=== PATIENT | female | born 1960 | race Caucasian/White ===

== ENCOUNTER → 2016-04-19 | Outpatient (REF) | payer OTHER ==
[~2016-04-19] MED LIST: ADVI200C5 PO; AMLO10TA2 PO; DULO1CAP3 PO; FURO20TA2 PO; LISI20TA3 PO; LOSA100T36 PO; MELO7.5T3 PO; METO100T PO; OMEP40CA2 PO; PERCOCET PO; SENO8.6T9 PO
[2016-04-22 14:12] LABS: 5HIAA 24HR URINE 2.9 mg/24 hr (0.0-14.9); 5HIAA TOTAL URINE 2.4 mg/L (Undefined)
== END ==
LOC: M LAB REF 15:45
PROVIDERS: ATTEND Internal Medicine
DX: I10 Essential (primary) hypertension (principal)

== ENCOUNTER → 2016-06-16 | Outpatient (REF) | payer OTHER | LOC: M LAB REF 11:53 | PROVIDERS: ATTEND Physician Assistant | DX: R30.0 Dysuria (principal) ==

== ENCOUNTER 2016-07-18 13:09 | Inpatient (IN) | payer OTHER ==
[~2016-07-18] VITALS: Ht 160 cm; Wt 93.2 kg
[~2016-07-18 13:09] MED LIST changes: -ATOR1TAB19 PO; -BUPR1TAB17 PO; -CHLO125TA PO; -CLOT1CRE71 TOP; -COLA100C3 PO; -LINZ145C PO; -METO-209 PO; -MIRA3350 PO; -MORP-38 PO; -NEXI40CA PO; -PROP40TA PO; -TOPI25CA PO; -TOPI50TA4 PO; -VALS1TAB48 PO
[2016-07-18] MEDS ORDERED: ATOR1TAB19 PO (13:26)
[2016-07-18] MEDS ORDERED: TOPI25CA PO (13:26)
[2016-07-18] MEDS ORDERED: NEXI40CA PO (13:26)
[2016-07-18] MEDS ORDERED: LINZ145C PO (13:26)
[2016-07-18] MEDS ORDERED: PROP40TA PO (13:26)
[2016-07-18] MEDS ORDERED: MIRA3350 PO (13:26)
[2016-07-18] MEDS ORDERED: BUPR1TAB17 PO (13:26)
[2016-07-18] MEDS ORDERED: CHLO125TA PO (13:26)
[2016-07-18] MEDS ORDERED: TOPI50TA4 PO (13:26)
[2016-07-18] MEDS ORDERED: VALS1TAB48 PO (13:26)
[2016-07-18] MEDS ORDERED: COLA100C3 PO (13:26)
[2016-07-18 14:04] LABS: BASO % 0.7 % (0.0-1.0); EOS # 0.2 K/mm3 (0.0-0.50); EOS % 2.9 % (0.0-3.0); LARGE UNSTAINED CELL # 0.2 K/mm3 (0.0-0.4); LARGE UNSTAINED CELL % 2.2 % (0.0-4.0); LYMPH # 2.8 K/mm3 (1.5-4.5); LYMPH % 40.9 % (24.0-44.0); MEAN CORPUSCULAR HEMOGLOBIN 32.7 pg (27.0-33.0); MEAN CORPUSCULAR VOLUME 88.8 fl (80.0-96.0); MONO # 0.3 K/mm3 (0.0-0.8); MONO % 4.7 % (0.0-5.0); NEUTROPHILS # 3.3 K/mm3 (1.8-7.7); NEUTROPHILS % 48.5 % (36.0-66.0); PLATELET COUNT, AUTOMATED 352 k/mm3 (150-450); WHITE BLOOD COUNT 6.8 K/mm3 (4.0-10.0)
[2016-07-18 14:06] LABS: MEAN CORPUSCULAR HGB CONC 36.5 g/dl (32.0-36.5)
[2016-07-18 14:15] LABS: ALBUMIN 3.8 GM/DL (3.2-5.2); ALBUMIN/GLOBULIN RATIO 0.95 (1.00-1.93); BILIRUBIN,DIRECT 0.1 MG/DL (0.0-0.2); BILIRUBIN,TOTAL 0.7 MG/DL (0.2-1.0); CALCIUM LEVEL 9.5 MG/DL (8.5-10.1); CREATININE FOR GFR 2.34 MG/DL (0.55-1.02); GLOMERULAR FILTRATION RATE 22.9 (>51); POTASSIUM SERUM 2.9 MEQ/L (3.5-5.1); TOTAL PROTEIN 7.8 GM/DL (6.4-8.2)
[2016-07-18] MEDS ORDERED: NS 1,000 ML IV ONE (14:30)
[2016-07-18] MEDS ORDERED: POTASSIUM CHLORIDE 10 MEQ SR TABLET PO ONE ×2 (14:30→19:00)
[2016-07-18] MEDS ORDERED: ONDANSETRON 4 MG ORAL DISINTEGRATING TAB (S0181) PO ONE (14:30)
[2016-07-18 15:15] LABS: URIC ACID 9.4 MG/DL (2.6-6.0)
[2016-07-18] MEDS ORDERED: MORPHINE 2 MG/ML 1ML SYRINGE IV ONE (15:15)
--- NOTE | 2016-07-18 16:26 | REP ---
RIGHT UPPER QUADRANT ULTRASOUND: Real-time sonographic evaluation of the right upper quadrant is performed. Multiple gallstones are seen in a distended gallbladder. There is no gallbladder wall thickening. There is no free fluid. There is no biliary dilatation. Common bile duct measuring 5 mm. A cyst in the left lobe of the liver measures 2.4 x 1.3 x 1.6 cm. A cyst in the right lobe of the liver measures 1.1 x 0.7 x 1.2 cm. Pancreas could not be seen due to overlying bowel gas. Right kidney demonstrates no hydronephrosis with a size of 11.7 cm. There is a cyst in the upper pole of the right kidney, 1.9 x 1.9 x 2.5 cm. IMPRESSION: Multiple gallstones in a distended gallbladder without evidence of gallbladder wall thickening, pericholecystic fluid or biliary dilatation. Signed by Hilario Hartman MD 07/18/2016 05:27 P
[2016-07-18] MEDS ORDERED: CLOT1CRE71 TOP (17:23)
[2016-07-18] MEDS ORDERED: MORP-38 PO (17:23)
[2016-07-18] MEDS ORDERED: METO-209 PO (17:23)
--- NOTE | 2016-07-18 18:09 | ECGEPIP ---
Stationary ECG Study [facility] - ED Test Date: 2016-07-18 Pat Name: ELLIE HOLLINS Department: Room: - Gender: F [employer]: ct : 1960 Requested By: LISA Raza Order Number: [id number] Reading MD: Arias Marcial Measurements Intervals [place] Rate: 100 P: 41 [place]: 147 QRS: -44 QRSD: 94 T: 2 QT: 348 QTc: 450 Interpretive Statements SINUS TACHYCARDIA LEFT AXIS DEVIATION LOW QRS VOLTAGE IN PRECORDIAL LEADS NON-SPECIFIC T WAVE ABNORMALITIES SIMILAR TO 05/25/11 Electronically Signed On 07-18-2016 18:09:07 EDT by Arias Marcial
[2016-07-18] MEDS ORDERED: MIRALAX *UNIT DOSE* 17GM PACKET PO PRN (18:30)
[2016-07-18 19:02] LABS: MAGNESIUM LEVEL 1.8 MG/DL (1.8-2.4)
[2016-07-18] MEDS: NS 1,000 ML IV SCH (19:09)
[2016-07-18] MEDS: ACETAMINOPHEN TAB 650MG DOSE (2X325MG) PO PRN (19:17)
[2016-07-18 20:00] VITALS: BP 128/74
--- NOTE | 2016-07-18 20:14 | HPE ---
DATE OF ADMISSION: 07/18/2016 PRIMARY CARE PROVIDER: Dr. Denney. CHIEF COMPLAINT: Abdominal pain. HISTORY OF PRESENT ILLNESS: Ms. Lockhart is a 56-year-old female with past medical history of hypertension, obesity, Stewart's esophagus who presented to the emergency department (ED) today with complaint of abdominal pain. The pain is located in her bilateral upper quadrant. Described as twisting sensation. Waxes and wanes. Symptoms started approximately 5 days ago. Unable to recall what she was doing when it first started. It is worse whenever she eats or drinks. Improves if she is nothing by mouth. Has not taken anything for her symptoms. Associated with nausea, constipation, 9 pound weight loss in the last two weeks, decreased appetite. No emesis, diarrhea, fevers, chills. Because of her abdominal pain and nausea she has not eaten a real meal in the last 4-5 days. Only drank half a bottle of kita sharad today. She actually saw her primary care provider today for her symptom. At that time she was found to be hypotensive with systolic low in the 90s with heart rate 120. She had blood work done which later showed creatinine of 2.3 and BUN 28, potassium 2.9, which is not her normal. She was then advised to stop her chlorthalidone, valsartan and advised to come into the hospital for further evaluation. Because she has not been able to eat and drink she has been feeling dizzy, lightheaded and actually had an episode of passing out approximately two days ago while at [employer]. It is unclear how long she was out for and details of this are unclear as she was by herself. She did call her daughter after waking up to bring her back to her house. Since then, has had no further episodes of syncopal events. In the emergency department (ED) was given 40 mEq of potassium times one, and one liter of normal saline. PAST MEDICAL HISTORY: Hypertension. Stewart's' esophagus. Escherichia coli (E.coli) urinary tract infection. Hyperlipidemia. Low back pain. Anxiety. Gastroesophageal reflux disease. Depression. PAST SURGICAL HISTORY: Positive for hysterectomy. Oophorectomy. Colonoscopy in 2012. EGD 2016, most recent one showed Stewart esophagus. Placement of spinal stimulator. Lumbar repair. Hammer toe repair. ALLERGIES: No known drug allergies. HOME MEDICATIONS: - Lipitor 10 mg by mouth daily - clotrimazole topical twice a day as needed for feet and stomach - Wellbutrin 150 mg by mouth daily - chlorthalidone 12.5 mg by mouth for fluid retention - Colace 100 mg by mouth twice a day as needed - Duloxetine 60 mg by mouth twice a day - Nexium 40 mg by mouth daily - Linzess 140 mcg by mouth daily - metoprolol succinate 100 mg by mouth daily (Please note that metoprolol succinate was recently discontinued in Dr. Denney office due to her hypotension today.) - Morphine sulfate 50 mg by mouth twice a day as needed - MiraLax 17 gram by mouth as needed - Propranolol 40 mg by mouth twice a day - Topamax 25 mg by mouth daily - <<6:14>> mg at bedtime - valsartan 325 mg by mouth daily FAMILY HISTORY: Parents without known medical problems. SOCIAL HISTORY: Patient is a never smoker. Used to drink alcohol on social occasions, a glass of wine but last drink was 2 months ago. 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 Lives in [place]. REVIEW OF SYSTEMS: CONSTITUTIONAL: Positive for 9 pounds weight loss in the last two weeks as mentioned. No fevers, chills, night sweats, rigors. HEENT: No difficulty with speech and swallow. No epistaxis. Eyes: No blurry vision, double vision. CARDIOVASCULAR: Denies chest pain, paroxysmal nocturnal dyspnea, pillow orthopnea, lower extremity edema. PULMONARY: Denies shortness of breath, productive cough, hemoptysis. GASTROINTESTINAL: Denies hematochezia, melena, or hematemesis, nausea, vomiting, diarrhea, constipation. GENITOURINARY: As above. : Positive for decreased urination in the last few days but no hematuria. MUSCULOSKELETAL: Positive for chronic back pain has a spinal stimulator. NEUROLOGICAL: Reports tingling and burning to her feet and her hands, but no paralysis, paresthesia. Positive for syncopal episode a few days ago. ENDOCRINE: Negative for diabetes, or thyroid disease. LYMPHATICS: No lumps, bumps, or swelling anywhere in neck, axilla, or groin. HEMATOLOGY: No abnormal bleeding or bruising. PSYCHIATRIC: Positive for history of depression, anxiety. SKIN: No new rashes. PHYSICAL EXAMINATION: VITAL SIGNS: Blood pressure 130/84, heart rate 96. Temperature 97.1, respiration rate 18, pulse ox 97% on room air. GENERAL: Patient is lying in bed, flat angle, comfortable, no acute distress. She is alert, awake and oriented times three. Pleasant, cooperative. Family at bed side. Appears stated age, obese appearing. HEENT: Normocephalic, atraumatic. Moist oral mucosa. Fair dentition. No thrush or lesions appreciated. Nasal septum midline. Eyes: Extraocular movement intact. Pupils equal, round, reactive to light. NECK: Supple. TRACHEA: Midline. Large neck. Could not appreciate JVD secondary to large neck size. CHEST: Symmetric chest rise. No accessory muscle use. Breath sounds were diminished but clear bilaterally. HEART: Mildly tachycardic. Did not appreciate murmurs, rubs or gallops. ABDOMEN: Soft, but tender to palpation bilateral upper quadrant. No rebound, no guarding, no peritoneal sign. Bowel sounds are normal and active. EXTREMITIES: No pedal edema, pedal pulses present bilaterally. NEUROLOGIC: Sensory intact. Strength 5/5 in all extremities. Did not assess gait. PSYCHIATRIC: Normal affect. LABORATORY DATA: WBC 6.8, hemoglobin 14.9, hematocrit 40.4, platelet 252, sodium 136, potassium 2.9, chloride 96, carbon dioxide 28, BUN 30, creatinine 2.34. The most recent labs in our record was back in 2012. At that time was normal. Fasting glucose 139, uric acid 9.4, lactic acid is 2. Liver profile normal. Total protein 7.8, albumin 3.8, lipase 247. Gallbladder ultrasound showed multiple gallstones in a distended gallbladder without evidence of gallbladder wall thickening. Pericholecystic fluid of biliary dilatation. Right kidney without hydronephrosis. Cyst in the left upper pole of the right kidney. Cyst in the left lobe of the liver measures 2.4 x 1.3 x 1.6 cm. Right lobe of the liver measures 1.1 x 0.7 x 1.2 cm. Electrocardiogram showed ventricular rate of 100 sinus tach, left axis deviation , S-wave, poor R-wave progression. No ST-T wave abnormality. IMPRESSION AND PLAN: Ms. Lockhart is a 56-year-old female with past medical history of hypertension, Stewart esophagus who presented with abdominal pain found to have acute renal failure and hypokalemia. 1. Abdominal pain. Ultrasound showed distended gallbladder without evidence of wall thickening, fluid or dilatation of biliary system. It is unclear whether this is the cause of her pain. Have ordered CT abdomen and pelvis to further evaluate. In the meantime, the patient will be made nothing by mouth due to her persistent nausea. Her diet can be advanced at a later time if she is able to tolerate. Her lipase was checked and was normal. Due to her age, obesity, history of hypertension and hyperlipidemia we have also added cardiac marker to evaluate for possible underlying cardiac cause. 2. Acute renal failure. This is likely secondary to dehydration and medication use. Despite her not being able to take any nothing by mouth she continued to take her chlorthalidone and valsartan. Patient will be admitted. Continue holding diuretics and idorhnqxjqa-wxujgotv-muwzlmo (ARB) for now. Continue with IV fluid hydration at 100 mL per hour. Urinalysis has been ordered. Result is pending. 3. Hypokalemia. Likely secondary to chlorthalidone use. Potassium has been repleted. We will repeat level. Continue holding chlorthalidone as mentioned. Check magnesium. 4. Dizziness. Likely secondary to her dehydration. Check orthostat blood pressure. Fall precaution. On IV fluid hydration as mentioned above. 5. History of hypertension. The patient was actually hypotensive in her doctor's office today. Have held her antihypertensive agents at this time. Continue IV hydration. If it continues to be improving we will consider resuming her medication at a later time. It is unclear why she is on both metoprolol and propranolol. In any case, both medications will be held for now. 6. Hyperlipidemia. Continue home dose of Lipitor 10 mg daily. 7. Stewart's esophagus with gastroesophageal reflux disease. Continue home dose PPI. 8. Depression and anxiety. Continue Wellbutrin 150 mg daily and Cymbalta 60 mg twice a day. 9. Chronic back pain. Continue home dose morphine as needed. 10. Constipation. Have started her on stool softeners. 11. Deep vein thrombosis prophylaxis. Sequential compression devices (SCDs), thromboembolic deterrent stockings (TEDS) and heparin. DISPOSITION: Due to patient's condition, we expect her stay to be greater than two midnights. My preceptor for this patient encounter was Dr. Hoover. The preceptor was physically present in the building during the encounter and was fully available as needed. All aspects of the patient interview, examination, medical decision making process, and medical care plan development were reviewed and approved by the preceptor. The preceptor is aware and concurs with the plan as stated in the body of this note and will attest to such by his/her co-signature. edited: 07/19/2016 0734 mil VAZQUEZ
[2016-07-18] MEDS: HEPARIN SOD (PORCINE) 5000 UNITS/ML VIAL SC SCH (22:33)
[2016-07-18] MEDS: TOPIRAMATE (TopAMAX) 25 MG TAB PO SCH (22:34)
[2016-07-18] MEDS: DULoxetine 30 MG CAP (CYMBALTA) PO SCH (22:35)
[2016-07-18] MEDS: SENOKOT S TAB PO SCH (22:35)
[2016-07-19] VITALS: BP 139/76
[2016-07-19] MEDS: NS 1,000 ML IV SCH ×2 (04:15→12:22)
--- NOTE | 2016-07-19 05:03 | REP ---
Clinical: Right-sided abdominal pain. Comparison: 09/23/2014. Findings: Lung bases clear. Visualized heart and pericardium normal. Liver demonstrates chronic 1 cm cyst and calcification in the right lobe. Cholelithiasis noted. Spleen, pancreas, bilateral adrenal glands are normal. Kidneys demonstrate stable hypodensities compatible with cysts and no evidence for nephrolithiasis or hydroureteronephrosis. The enteric system is without obstruction or acute inflammatory process. Few scattered diverticula noted without acute diverticulitis. Pelvis demonstrates normal bladder and evidence for prior hysterectomy. No ascites. No adenopathy. No free air. Abdominal aorta demonstrates mild atherosclerotic changes without aneurysm. Musculoskeletal structures demonstrate age-related degenerative changes. Impression: 1. Cholelithiasis. 2. Stable hepatic cyst and calcification. 3. Stable bilateral renal cysts without hydroureternephrosis, perinephric stranding, or nephroureterolithiasis. 4. Few scattered colonic diverticula without acute diverticulitis. Signed by Kevin Cook MD 07/19/2016 04:55 A
[2016-07-19] MEDS: HEPARIN SOD (PORCINE) 5000 UNITS/ML VIAL SC SCH ×3 (06:45→22:04)
[2016-07-19 08:30] VITALS: BP 119/72
[2016-07-19] MEDS: ACETAMINOPHEN TAB 650MG DOSE (2X325MG) PO PRN (08:36)
[2016-07-19] MEDS: DULoxetine 30 MG CAP (CYMBALTA) PO SCH ×2 (08:37→22:05)
[2016-07-19] MEDS: buPROPion **SR TABLET** (ZYBAN) 150MG PO SCH (08:37)
[2016-07-19] MEDS: PANTOPRAZOLE 40MG TAB (PROTONIX) PO SCH (08:37)
[2016-07-19] MEDS: SENOKOT S TAB PO SCH ×2 (08:38→22:04)
[2016-07-19] MEDS: ATORVASTATIN 10 MG TAB PO SCH (08:38)
[2016-07-19 08:40] LABS: MEAN CORPUSCULAR HEMOGLOBIN 30.9 pg (27.0-33.0); MEAN CORPUSCULAR HGB CONC 34.4 g/dl (32.0-36.5); RED CELL DISTRIBUTION WIDTH 12.2 % (11.5-14.5); WHITE BLOOD COUNT 4.1 K/mm3 (4.0-10.0)
[2016-07-19 09:23] LABS: ALBUMIN 3.1 GM/DL (3.2-5.2); CALCIUM LEVEL 8.3 MG/DL (8.5-10.1); CREATININE FOR GFR 1.58 MG/DL (0.55-1.02); PHOSPHORUS LEVEL 3.4 MG/DL (2.5-4.9); POTASSIUM SERUM 3.7 MEQ/L (3.5-5.1)
[2016-07-19] MEDS: GI COCKTAIL 50ML BTL(HYOSCYAMINE/MAALOX/LIDOCAINE VISCOUS)(1:3:1) PO PRN (12:21)
[2016-07-19 16:14] VITALS: BP 149/87
[2016-07-19 16:15] VITALS: BP_SYST 112; BP_SYST 113; BP_DIAS 79; BP_DIAS 82
[2016-07-19] MEDS: TOPIRAMATE (TopAMAX) 25 MG TAB PO SCH (22:04)
[2016-07-20] VITALS (8 sets, daily range): BP systolic 118–154; BP diastolic 73–97
[2016-07-20] MEDS: NS 1,000 ML IV SCH ×2 (00:15→08:56)
[2016-07-20] MEDS: HEPARIN SOD (PORCINE) 5000 UNITS/ML VIAL SC SCH ×3 (06:10→20:37)
[2016-07-20 06:34] LABS: MEAN CORPUSCULAR HEMOGLOBIN 30.9 pg (27.0-33.0); MEAN CORPUSCULAR HGB CONC 34.8 g/dl (32.0-36.5); MEAN CORPUSCULAR VOLUME 88.8 fl (80.0-96.0); RED CELL DISTRIBUTION WIDTH 12.1 % (11.5-14.5); WHITE BLOOD COUNT 4.1 K/mm3 (4.0-10.0)
[2016-07-20 06:57] LABS: ALBUMIN 2.9 GM/DL (3.2-5.2); CALCIUM LEVEL 8.2 MG/DL (8.5-10.1); CREATININE FOR GFR 1.06 MG/DL (0.55-1.02); GLOMERULAR FILTRATION RATE 57.1 (>51); POTASSIUM SERUM 3.3 MEQ/L (3.5-5.1)
[2016-07-20] MEDS: buPROPion **SR TABLET** (ZYBAN) 150MG PO SCH (08:04)
[2016-07-20] MEDS: ACETAMINOPHEN TAB 650MG DOSE (2X325MG) PO PRN ×2 (08:04→19:04)
[2016-07-20] MEDS: DULoxetine 30 MG CAP (CYMBALTA) PO SCH ×2 (08:04→20:36)
[2016-07-20] MEDS: SENOKOT S TAB PO SCH ×2 (08:05→20:36)
[2016-07-20] MEDS: ATORVASTATIN 10 MG TAB PO SCH (08:05)
[2016-07-20] MEDS: PANTOPRAZOLE 40MG TAB (PROTONIX) PO SCH ×2 (08:05→20:35)
[2016-07-20] MEDS ORDERED: POTASSIUM CHLORIDE 10 MEQ SR TABLET PO ONE (09:15)
[2016-07-20] MEDS: ONDANSETRON 4MG/2ML VIAL (J2405) IV PRN ×2 (09:30→19:04)
[2016-07-20 10:00] LABS: MAGNESIUM LEVEL 1.8 MG/DL (1.8-2.4)
[2016-07-20] MEDS: GI COCKTAIL 50ML BTL(HYOSCYAMINE/MAALOX/LIDOCAINE VISCOUS)(1:3:1) PO PRN ×2 (14:08→22:06)
[2016-07-20] MEDS: MORPHINE 15 MG SA TAB PO PRN ×2 (14:09→20:36)
--- NOTE | 2016-07-20 14:19 | IPN ---
DATE: 07/19/2016 SUBJECTIVE: This is a 56-year-old female who is seen and examined at bedside. Since admission, she feels a lot better. Denies any abdominal pain, dizziness, lightheadedness, chest pain, shortness of breath, vomiting, diarrhea, or constipations. States that her urine output has significantly improved. She has been ambulating to the bathroom and back without any difficulty with her dizziness. Anxious to go home. She remains nothing by mouth due to her nausea and abdominal pain last night. OBJECTIVE: VITAL SIGNS: Blood pressure 119/72, heart rate 81, temperature 98, respiration rate 18, pulse oximetry 96% on room air. Intake and output the last 24 hours not correctly documented. It is only reported as 214 for intake and 750 for output. One bowel movement documented. GENERAL: Patient is lying in bed, comfortable, in no acute distress, alert, awake and oriented times three. Family at bedside. HEENT: Normocephalic, atraumatic. Moist oral mucosa. NECK: Supple. Trachea midline. No jugular venous distention (JVD). CHEST: Symmetric chest rise. No accessory muscle use. Breath sounds were diminished but clear bilaterally. HEART: Regular rate and rhythm. Did not appreciate murmurs, rubs or gallops. ABDOMEN: Soft, mildly tender to palpation in epigastric region. No rebound. No guarding. No peritoneal sign. Bowel sounds are normoactive. EXTREMITIES: No pedal edema. Pedal pulses present bilaterally. NEUROLOGIC: Sensory intact. Strength 5/5 in all extremities. No focal deficits appreciated. PSYCHIATRIC: Normal affect. LABORATORY DATA: WBC 4.1, hemoglobin 11.8, hematocrit 34.4, platelets 271, all lines are decreased compared to yesterday. Sodium 143, potassium 3.7, chloride 105, carbon dioxide 29, BUN 23, creatinine 1.58 improved from yesterday of 30 and 2.34. Glucose 88, calcium 8.3, alkaline phosphatase 3.4, CK-MB 4.4. Troponins negative times three. Urinalysis showed trace ketones, trace leukocyte esterase. CT abdomen and pelvis performed last night reports cholelithiasis, stable hepatic cyst and calcification, stable bilateral renal cyst without hydroureteronephrosis, perinephric stranding or nephroureterolithiasis, few scattered colonic diverticula without acute diverticulitis. IMPRESSION AND PLAN: Ms. Lockhart is a 56-year-old female with past medical history of hypertension and Stewart's esophagus who presented with abdominal pain and acute kidney injury (INO) from dehydration. 1. Acute renal failure. Secondary to dehydration and medication induced. Her renal function is improved today compared to yesterday after fluid hydration. Continue holding her chlorthalidone and valsartan. We will continue to monitor for now. Repeat laboratories in the morning. Continue fluid hydration at 100 mL per hour. 2. Abdominal pain. Her pain appears to be more epigastric in region. Cardiac marker and EKG were negative. Her CT did not show any acute process. She does have cholelithiasis by imaging. She reports improvement in her abdominal pain today compared to yesterday. Because of her improved condition, we will advance her diet to clears and advance later as tolerated. 3. Hypokalemia, resolved after potassium supplementation. 4. Dizziness, resolved. Likely secondary to dehydration. Orthostatic vital signs were checked yesterday and were positive. We will repeat today. 5. Hypertension. Blood pressure is reasonable. Continue to monitor for now. She is off her valsartan, chlorthalidone. In reviewing her medication list from her primary care provider (PCP), she only takes metoprolol succinate and not propranolol as listed. She list take Norvasc 10 mg at home though this is not listed. We will consider resuming this medication when her blood pressure significantly improves. 6. Hyperlipidemia. Continue Lipitor. 7. Stewart's esophagus. Her recent esophagogastroduodenoscopy (EGD) was last year. Continue home dose proton pump inhibitor (PPI). 8. Depression and anxiety. Continue Wellbutrin 150 mg daily and Cymbalta 60 mg twice a day. 9. Chronic back pain. Continue home dose morphine and Cymbalta. 10. Constipation. She is on MiraLAX as needed and Senokot scheduled. There is documentation of one bowel movement. 11. Deep vein thrombosis prophylaxis. Sequential compression devices (SCDs), thromboembolic deterrent stockings (TEDS) and heparin. DISPOSITION: The patient will be monitored on medical/surgical floor for now. We have advanced her diet. My preceptor for this patient encounter was Dr. Katiana Franco . The preceptor was physically present in the building during the encounter and was fully available as needed. All aspects of the patient interview, examination, medical decision making process, and medical care plan development were reviewed and approved by the preceptor. The preceptor is aware and concurs with the plan as stated in the body of this note and will attest to such by his/her co-signature. GEORGE
[2016-07-20] MEDS: NS 0.45% 1,000 ML IV SCH (19:04)
--- NOTE | 2016-07-20 20:16 | IPN ---
DATE: 07/20/2016 SUBJECTIVE: Patient is seen at bedside. Overnight her diet was advanced. She was having some nausea with eating soup and some abdominal discomfort, but she did force herself to eat and was able to keep that down. She is anxious to go home. Denies any chest pain, shortness of breath, palpitations, vomiting, constipation, diarrhea. Her nausea persists but significantly improved. Her abdominal pain is also significantly less severe and less frequent. OBJECTIVE: VITAL SIGNS: Blood pressure 118/77, heart rate 104, temperature 97.7, respiration rate 18, pulse oximetry 97% on room air. Orthostatic blood pressure check this morning was negative. GENERAL: Patient is lying in bed, comfortable, no acute distress. She is alert , awake, oriented times three, cooperative. HEENT: Normocephalic, atraumatic. Moist oral mucosa. Neck supple, trachea midline, no jugular venous distention (JVD). CHEST: Symmetric chest rise, no accessory muscle use. Breath sounds were diminished but clear bilaterally. HEART: Regular rate and rhythm with normal S1, S2. Did not appreciate murmurs, rubs, or gallops. ABDOMEN: Soft, tender to palpation in the epigastric. No rebound. No guarding. No peritoneal signs. Bowel sounds are active. EXTREMITIES: No pedal edema bilaterally. NEUROLOGIC: Sensory intact. Strength 5/5 in all extremities. PSYCHIATRIC: Normal affect. LABORATORY DATA: WBC 4.1, hemoglobin 11.3, hematocrit 32.4, platelets 252, Sodium 144, potassium 3.3, chloride 109, carbon dioxide 28, BUN 16, creatinine 1.06, glucose 83, phosphorous is normal, magnesium 1.8, calcium 8.2, albumin 2.9. IMPRESSION AND PLAN: Ms. Lockhart is a 56-year-old female with past medical history of hypertension, Stewart's esophagus, presented with abdominal pain, acute kidney injury (INO) from dehydration . 1. Acute renal failure, resolving. Secondary to dehydration. Will continue IV fluid hydration but adjust her to half normal saline. Her sodium has slowing increasing. 2. Abdominal pain. Etiology unclear. She reports abdominal pain and nausea with food which has not significantly improved. This continues to be persistent. We will check small bowel follow through to further evaluate. The patient can be made nothing by mouth past midnight for testing. 3. Hypokalemia. Potassium has been repleted. 4. Dizziness, resolved. Likely secondary to hypovolemia. Orthostatic check was normal. 5. Hypertension. Blood pressure is reasonable for now. Will continue holding her medication. 6. Hyperlipidemia. Continue Lipitor. 7. Stewart's esophagus. Will adjust her proton pump inhibitor (PPI). 8. Depression and anxiety. Continue the Wellbutrin. 9. Obesity. Body mass index (BMI) is 34. Will continue to complicate medical management. 10. Deep venous thrombosis (DVT) prophylaxis. Sequential compression devices (SCDs), thromboembolism deterrents (TEDs) and heparin. My preceptor for this patient encounter was Dr. Katiana Franco. The preceptor was physically present in the building during the encounter and was fully available. As needed, all aspects of the patient interview, examination, medical decision making process, and medical care plan development were reviewed and approved by the preceptor. The preceptor is aware and concurs with the plan as stated in the body of this note and will attest to such by his cosignature. GEORGE
[2016-07-20] MEDS: TOPIRAMATE (TopAMAX) 25 MG TAB PO SCH (20:36)
[2016-07-21] VITALS (9 sets, daily range): BP systolic 118–177; BP diastolic 70–113
[2016-07-21] MEDS: NS 0.45% 1,000 ML IV SCH (04:02)
[2016-07-21] MEDS: HEPARIN SOD (PORCINE) 5000 UNITS/ML VIAL SC SCH ×3 (06:26→21:02)
[2016-07-21] MEDS ORDERED: KCL 10MEQ IN 100ML SWI (KRUN) 10 MEQ in APPROPRIATE DILUENT 1 EA IV SCH ×2 (08:00)
[2016-07-21 08:06] LABS: MEAN CORPUSCULAR VOLUME 91.4 fl (80.0-96.0); RED CELL DISTRIBUTION WIDTH 12.1 % (11.5-14.5); WHITE BLOOD COUNT 4.3 K/mm3 (4.0-10.0)
[2016-07-21 08:24] LABS: ALBUMIN 2.8 GM/DL (3.2-5.2); ANION GAP 4 MEQ/L (8-16); BLOOD UREA NITROGEN 8 MG/DL (7-18); CALCIUM LEVEL 7.7 MG/DL (8.5-10.1); CARBON DIOXIDE LEVEL 31 MEQ/L (21-32); CHLORIDE LEVEL 109 MEQ/L (98-107); CREATININE FOR GFR 0.97 MG/DL (0.55-1.02); GLOMERULAR FILTRATION RATE > 60.0 (>51); GLUCOSE, FASTING 77 MG/DL (70-105); POTASSIUM SERUM 3.6 MEQ/L (3.5-5.1); SODIUM LEVEL 144 MEQ/L (136-145); URIC ACID 6.3 MG/DL (2.6-6.0)
[2016-07-21] MEDS: FIORICET TAB PO PRN ×2 (09:37→15:59)
[2016-07-21] MEDS: SUCRALFATE SUSP 1GM/10ML UD PO SCH ×3 (12:00→21:02)
[2016-07-21 12:04] LABS: ALBUMIN/GLOBULIN RATIO 0.97 (1.00-1.93); ALKALINE PHOSPHATASE 61 U/L (45-117); ALT/SGPT 19 U/L (12-78); AST/SGOT 18 U/L (15-37); BILIRUBIN,DIRECT < 0.1 MG/DL (0.0-0.2); BILIRUBIN,TOTAL 0.3 MG/DL (0.2-1.0); TOTAL PROTEIN 5.7 GM/DL (6.4-8.2)
[2016-07-21] MEDS ORDERED: E-Z-HD 98% w/w 340GM SUSP BTL As Ordered ONE (12:18)
[2016-07-21] MEDS ORDERED: E-Z-GAS II EFFERVESCENT PACKET (SODIUM BICARB./CITRIC ACID/SIMETHICONE) As Ordered ONE (12:18)
[2016-07-21] MEDS ORDERED: E-Z-PAQUE 96% w/w SUSP 176GM BTL As Ordered ONE (12:18)
[2016-07-21] MEDS: DULoxetine 30 MG CAP (CYMBALTA) PO SCH ×2 (15:39→21:03)
[2016-07-21] MEDS: PANTOPRAZOLE 40MG TAB (PROTONIX) PO SCH ×2 (15:40→21:03)
[2016-07-21] MEDS: SENOKOT S TAB PO SCH ×2 (15:40→21:03)
[2016-07-21] MEDS: buPROPion **SR TABLET** (ZYBAN) 150MG PO SCH (15:59)
[2016-07-21] MEDS: ATORVASTATIN 10 MG TAB PO SCH (16:00)
--- NOTE | 2016-07-21 17:37 | REP ---
UPPER GI, AIR CONTRAST, AND SMALL BOWEL FOLLOW THROUGH: The procedure was performed under the direct supervision of Dr. Hartman. The images were reviewed with Dr. Hartman. The silver wrapper film shows no organomegaly or pathological masses. The intestinal gas pattern is nonspecific. There is a dorsal column stimulator in place with the power pack overlying the right pelvis. There is a lumbar fixation device in place. Liquid barium and gas-producing granules were given in the erect position as well as liquid barium in the prone oblique position in order to perform a double contrast upper GI examination. Additionally, liquid barium was given at the end of the examination in order to perform a small bowel follow through. The oral and pharyngeal stages of deglutition are unremarkable. There is cricopharyngeal hypertrophy. Esophageal transport is prompt and efficient and there is no esophagitis, stricture, mucosal ring or hiatal hernia. Gastroesophageal reflux is not demonstrated on this examination. The stomach barr are normally outlined. The rugal folds are smooth and regular. There is no gastritis, neoplasm or ulcer disease. The duodenal barr are normally outlined. The mucosal folds are smooth and regular. There is no duodenitis, pancreatitis, peptic ulcer disease or neoplasm. The visualized portion of the proximal small bowel appears normal in course and caliber. The barium column was followed through the small bowel to the level of the terminal ileum. Small bowel transit time is approximately two hours and 30 minutes. During fluoroscopy, gentle palpation shows all loops are freely movable and pliable. There are no fixed or angulated loops. The small bowel mucosal pattern is normal in course and caliber. There is no transition to suggest a partial small bowel obstruction. Spot filming of the terminal ileum shows it to be unremarkable. IMPRESSION: There is cricopharyngeal hypertrophy, otherwise, unremarkable double contrast upper GI and small bowel follow through examination. 2 minutes and 52 seconds of fluoroscopy time was utilized for this procedure. Reviewed by [email or web address] Olivo 07/21/2016 05:45 PEdited and Signed by Hilario Hartman MD 07/24/2016 05:37 P
[2016-07-21] MEDS: GI COCKTAIL 50ML BTL(HYOSCYAMINE/MAALOX/LIDOCAINE VISCOUS)(1:3:1) PO PRN (19:56)
[2016-07-21] MEDS: TOPIRAMATE (TopAMAX) 25 MG TAB PO SCH (21:03)
[2016-07-22 04:00] VITALS: BP 126/83
[2016-07-22 06:38] LABS: MEAN CORPUSCULAR VOLUME 91.1 fl (80.0-96.0); RED CELL DISTRIBUTION WIDTH 12.1 % (11.5-14.5); WHITE BLOOD COUNT 4.4 K/mm3 (4.0-10.0)
[2016-07-22] MEDS: HEPARIN SOD (PORCINE) 5000 UNITS/ML VIAL SC SCH (06:42)
[2016-07-22 06:52] LABS: ALBUMIN 2.7 GM/DL (3.2-5.2); ANION GAP 6 MEQ/L (8-16); BLOOD UREA NITROGEN 7 MG/DL (7-18); CALCIUM LEVEL 8.1 MG/DL (8.5-10.1); CARBON DIOXIDE LEVEL 31 MEQ/L (21-32); CHLORIDE LEVEL 106 MEQ/L (98-107); CREATININE FOR GFR 0.95 MG/DL (0.55-1.02); GLOMERULAR FILTRATION RATE > 60.0 (>51); GLUCOSE, FASTING 85 MG/DL (70-105); PHOSPHORUS LEVEL 3.4 MG/DL (2.5-4.9); POTASSIUM SERUM 3.6 MEQ/L (3.5-5.1); SODIUM LEVEL 143 MEQ/L (136-145)
[2016-07-22] MEDS: SUCRALFATE SUSP 1GM/10ML UD PO SCH (08:33)
[2016-07-22] MEDS: PANTOPRAZOLE 40MG TAB (PROTONIX) PO SCH (08:34)
[2016-07-22] MEDS: DULoxetine 30 MG CAP (CYMBALTA) PO SCH (08:34)
[2016-07-22] MEDS: ATORVASTATIN 10 MG TAB PO SCH (08:34)
[2016-07-22] MEDS: buPROPion **SR TABLET** (ZYBAN) 150MG PO SCH (08:34)
[2016-07-22] MEDS: SENOKOT S TAB PO SCH (08:35)
[2016-07-22 08:45] VITALS: BP 163/77
[2016-07-22] MEDS: ONDANSETRON 4MG/2ML VIAL (J2405) IV PRN (08:59)
[2016-07-22] MEDS: GI COCKTAIL 50ML BTL(HYOSCYAMINE/MAALOX/LIDOCAINE VISCOUS)(1:3:1) PO PRN (09:30)
[2016-07-22] MEDS ORDERED: MYLASUS16 PO ×2 (09:47→15:24)
[2016-07-22] MEDS ORDERED: PANT40TA2 PO (09:47)
[2016-07-22] MEDS ORDERED: SUCR10SS PO (09:47)
[2016-07-22] MEDS ORDERED: ONDA4TAB6 PO (09:47)
[2016-07-22] MEDS ORDERED: AMLO10TA2 PO (10:20)
[2016-07-22] MEDS ORDERED: Hyoscyamine/Maalox/Lidoca Visc PO (10:24)
--- NOTE | 2016-07-22 15:05 | IPN ---
DATE: 07/21/2016 TIME OF VISIT: 10 a.m. SUBJECTIVE: This is a 56-year-old female who is seen and examined at bedside. Overnight, no reported acute events. We started her on Fioricet because of complaint of migraine headache this morning. She was made nothing by mouth for a small-bowel follow through. This morning reports intermittent pain, but it improved. Wants to eat. No chest pain, palpitations, shortness of breath, vomiting. Did report some nausea. OBJECTIVE: VITAL SIGNS: Blood pressure 121/83, heart rate 104, temperature 97.6, respirations 18, pulse oximetry 97% on room air. Intake and output last 24 hours : 3060 and 2300. GENERAL: The patient is lying in bed comfortable, no acute distress. Alert, awake, oriented times three. Pleasant and cooperative. at bedside. HEENT: Normocephalic, atraumatic. Moist oral mucosa. NECK: Supple. Trachea midline. Could not appreciate jugular venous distention (JVD) secondary to large neck size. CHEST: Symmetric chest rise. No accessory muscle use. Breath sounds were diminished bilaterally. HEART: Regular rate and rhythm with normal S1, S2. ABDOMEN: Soft. Tender to palpation epigastric region. No guarding, no rebound. No peritoneal signs. EXTREMITIES: No pedal edema. Pedal pulses present bilaterally. LABORATORY DATA: WBC 4.3, hemoglobin 11, hematocrit 32.3, platelets 295. Sodium 144, potassium 3.6, chloride 109, carbon dioxide 31, BUN 8, creatinine 0.97, glucose 77. Hemoglobin A1c 6.6. Uric acid 6.3, calcium 7.7. Liver profile is normal. Total protein 5.7. IMPRESSION AND PLAN: Ms. Lockhart is a 56-year-old female, history of hypertension, Stewart's esophagus, presented with abdominal pain, acute kidney injury (INO) secondary to dehydration. 1. Acute renal failure, resolved. We will discontinue intravenous (IV) fluids once she is able to tolerate oral. 2. Abdominal pain and nausea. Case discussed with patient's turning sander tender, Dr. Bray. Per Dr. Bray, her symptoms are less likely to be Steawrt's; if anything, it could be secondary to gastritis, and recommended that we start her on scheduled Carafate and Mylanta as needed, along with proton pump inhibitor (PPI) twice a day. He did recommend that because of her abdominal ultrasound showing gallstones, that she be evaluated by surgery. We have also reached out to Dr. Adams for assistance. We will follow with his recommendation. 3. Hypokalemia, resolved. 4. Dizziness, resolved. This is secondary to hypovolemia from her dehydration. 5. Hypertension. Blood pressure is reasonable. Continue holding her medication at this time. Hopefully this can be restarted at the time of discharge. 6. Hyperlipidemia. Continue Lipitor. 7. Stewart's esophagus. Case discussed with GI as mentioned above. 8. Anxiety/depression. Continue Wellbutrin. 9. Obesity, body mass index (BMI) 34. Continues to complicate medical management. 10. Deep venous thrombosis (DVT) prophylaxis. Sequential compression devices (SCDs), thromboembolism deterrent stockings (TEDs), and heparin. My preceptor for this patient encounter was Dr. Katiana Franco. The preceptor was physically present in the building during the encounter and was fully available as needed. All aspects of the patient interview, examination, medical decision making process, and medical care plan development were reviewed and approved by the preceptor. The preceptor is aware and concurs with the plan as stated in the body of this note and will attest to such by his/her co-signature. GEORGE
--- NOTE | 2016-07-22 22:07 | CR ---
DATE OF CONSULTATION: REASON FOR CONSULTATION: Gallstones. HISTORY OF PRESENT ILLNESS: The patient is a 56-year-old female patient well known to Dr. Bray for a history of Stewart's esophagus who presented to the emergency room (ER) after being sent in from her primary for renal injury. She claims to have had recent episode of the flu. Because of that, she was not eating or drinking very much and she went to her primary to have blood work completed which showed that her creatinine was bumped up to 2.3, so she was sent into the ER to be admitted for some hydration. She has been having intermittent upper abdominal pains, mainly occurring immediately with any food or liquid intake. The pain she describes as a twisting pain right in her epigastric area that does go away a couple hours after eating. She is currently on Nexium at home and has been followed with this Stewart's esophagus by Dr. Bray, with the last scope being last year. Due to her symptoms of the epigastric pain, he was asked to evaluate her; however, because of her gallstones on ultrasound, he recommended that I take a look at her as well. She denies having any right upper quadrant abdominal pains at this time. She has had intermittent right upper quadrant pain radiating up to the right shoulder over the past few months but nothing in the last few weeks. She thought it was all just gas pains. Her pains now for more acute and they are mainly just in the epigastric area. She does drink a lot of coffee and soda which is contraindicated with her Stewart's esophagus. No other was associated stimulants for acid production and denies tobacco abuse. No alcohol, no spicy or acidic food. PAST MEDICAL HISTORY: 1. Hypertension. 2. Stewart's esophagus. 3. Hyperlipidemia 4. Low back pain. 5. Anxiety. 6. Gastroesophageal reflux disease (GERD). 7. Depression. PAST SURGICAL HISTORY: 1. Hysterectomy. 2. Oophorectomy. 3. Colonoscopy 2012. 4. Esophagogastroduodenoscopy (EGD) 2015. 5. Spinal stimulator. 6. Lumbar repair and hammertoe repair. ALLERGIES: None. HOME MEDICATIONS: Please see medication rec. REVIEW OF SYSTEMS: Pertinent positives and negatives as stated in the history of present illness (HPI). FAMILY HISTORY: Noncontributory. SOCIAL HISTORY: Denies drug, alcohol, tobacco abuse. PHYSICAL EXAMINATION GENERAL: Alert and oriented times three. No acute distress. VITALS: Temperature 98, pulse 72, respirations 18, blood pressure 163/77, pulse oximetry 97% room air. HEENT: Pupils equal, round, react to light and accommodation. HEART: S1, S2, regular rate and rhythm. LUNGS: Clear to auscultation bilaterally. ABDOMEN: Soft, tender to palpation epigastric. No pain in the right upper quadrant. No rebounding or guarding. EXTREMITIES: No clubbing, cyanosis or edema. LABORATORY DATA: White count 4.4, hemoglobin 11. Total bilirubin 0.3, direct bilirubin 0.1, AST 18, ALT 19, alkaline phosphatase 61, creatinine 0.95. IMAGING: Gallbladder ultrasound shows multiple gallstones. No signs of gallbladder wall thickening, pericholecystic fluid or biliary dilatation. Upper GI with small bowel x-ray shows cricopharyngeal hypertrophy, otherwise unremarkable double contrast upper GI and small-bowel follow-through. ASSESSMENT/PLAN: Patient is a 56-year-old female with signs and symptoms consistent of likely gastritis with esophagitis and cholelithiasis that is likely incidental at this point. According to her history, she does sound like she does have occasional symptomatic cholelithiasis. However, this acute episode appears to be more likely related to gastritis versus esophagitis due to her pain occurring immediately with any food and the pain being in the epigastric area. All of her symptoms were also relieved by a gastrointestinal (GI) cocktail, which again is more suspicious for esophagitis and gastritis. Recommendation at this time is to continue with the Carafate and the Protonix. Stop all caffeine intake and followup with Dr. Bray for possible repeat upper endoscopy sooner in the next couple months rather than waiting until next year. As far as the gallbladder is concerned, she likely will need a cholecystectomy for symptomatic cholelithiasis. However, there is no emergency. It does not need to be completed during this hospital admission. Recommendation to followup with me in the office and we will schedule this as an outpatient. I did discuss the procedure with her, both laparoscopically and robotically, and just gave her an idea of what is involved as far as the preoperative paperwork and the postoperative course. She seems very interested and will followup me in the office to have this scheduled in the next month or so.
--- NOTE | 2016-07-23 20:26 | DSES ---
DATE OF ADMISSION: 07/18/2016 DATE OF DISCHARGE: 07/22/2016 PRIMARY CARE PROVIDER: Dr. Denney CONSULTANTS: Dr. Adams, general surgeon. PROCEDURES: None. DIAGNOSTIC IMAGING: Gallbladder ultrasound showed multiple gallstones in a distended gallbladder without evidence of wall thickening, cholecystic fluid or biliary dilatation. Abdominal CT showed cholelithiasis, stable hepatic cyst and calcification, stable bilateral renal cysts without hydroureteronephrosis, stranding. Few scattered diverticula without diverticulitis. Upper GI series with small bowel follow through showed cricopharyngeal hypertrophy, otherwise unremarkable double contrast upper GI and small bowel follow through. DISCHARGE DIAGNOSES: 1. Intractable nausea and abdominal pain secondary to possible gastritis and symptomatic cholelithiasis. 2. Acute kidney injury. 3. Dehydration. 4. Dizziness. 5. Hypokalemia. 6. History of Stewart's esophagus. SECONDARY ADMITTING DIAGNOSES: 1. Anxiety and depression. 2. Migraine headaches. 3. Obesity with Body Mass Index (BMI) of 34. 4. Hyperlipidemia. 5. Hypertension. 6. History of urinary tract infection (UTI). 7. Chronic low back pain. 8. Gastroesophageal reflux disease (GERD). BRIEF HOSPITAL COURSE: Ms. Lockhart is a 56-year-old female with a past medical history as mentioned above, who presented to the emergency department on 07/18/2016 with complaint of abdominal pain. Pain was described as twisting sensation, waxes and wanes. Symptoms started approximately 5 days prior to presentation. It is worse when she was eating and drinking and improved if she did not take anything by mouth. Symptoms were associated with nausea, decreased appetite. Because of her symptoms, she actually saw her primary care provider. At that time, she was found to be hypotensive with systolic as low as the 90s and heart rate 120. Her renal function was also checked and showed to be significantly worse compared to her normal. Her potassium was low at 2.9. The patient reportedly continued to take all of her antihypertensive medications despite her poor oral intake. For history and physical, please dictation on admission. Because of her symptoms, she was admitted for further workup. For her kidney injury, she was admitted and started on IV fluid resuscitation. With fluid rehydration, her renal function returned to normal. For her abdominal pain, she had imaging, as mentioned above. Case was also discussed with her gear lapping machine operator, Dr. Bray, who recommended that she be started on Carafate and Mylanta with scheduled proton pump inhibitor. She was also evaluated by Dr. Adams of general surgery, and it is recommended that she be followed closely with him outpatient for future consideration of cholecystectomy. Her dizziness was secondary to severe hypotension from dehydration and this resolved with fluid resuscitation. For her hypertension, because of her hypotension, all of her antihypertensive regimen was held. PHYSICAL EXAMINATION: At the time of discharge: VITAL SIGNS: Blood pressure 126/83, heart rate 98, temperature 97.4, respiration rate 18, pulse oximetry 97% on room air. Intake and output the last 24 hours 1200 and 2300. GENERAL: The patient was sitting in bed, comfortable, no acute distress. She is alert, awake, oriented times three. Pleasant, cooperative, at bedside. HEENT: Normocephalic, atraumatic. Moist oral mucosa. Extraocular movements intact. Pupils are equal and reactive to light. NECK: Supple. Trachea midline. No jugular venous distention (JVD). CHEST: Symmetric chest rise. No accessory muscle use. Breath sounds were clear to auscultation. HEART: Regular rate and rhythm. No appreciable murmurs, rubs or gallops. ABDOMEN: Soft. Mildly tender to palpation in right upper quadrant but no rebound. No guarding. No peritoneal signs. EXTREMITIES: No pedal edema. Pedal pulses present bilaterally. LABORATORY DATA: WBC 4.4, hemoglobin 11, hematocrit 33.4, platelets 293. Sodium 143, potassium 3.6, chloride 106, carbon dioxide 31, BUN 7, creatinine 0.95, this is significantly improved compared to 2.34 on admission. Hemoglobin A1/c 6.6, calcium 8.1, phosphorous 3.4, albumin 2.7. DISCHARGE: To home. CONDITION: Stable. ACTIVITY: As tolerated. DIET: Low fat, low cholesterol diet. DISCHARGE MEDICATIONS: New medications: - GI cocktail 15 mL every 8 hours as needed - Zofran 4 mg every 6 hours as needed - pantoprazole 40 mg twice a day - Carafate 1 gram before food and nightly Continue the following home medications: - Lipitor 10 mg by mouth daily - Clotrimazole betamethasone topical as needed to sores - Wellbutrin 150 mg by mouth daily - Colace 100 mg by mouth twice a day - duloxetine 60 mg twice a day - 145 mcg by mouth daily - morphine sulfate 15 mg by mouth twice a day as needed - MiraLAX 17 grams by mouth as needed - Topamax 50 mg daily and 50 mg at night Stop the following home medications: Chlorthalidone 12.5 mg by mouth daily Metoprolol succinate 100 mg by mouth daily Propranolol 40 mg by mouth twice a day Valsartan 325 mg by mouth daily DISCHARGE INSTRUCTIONS: Please hold home medications until evaluation by Dr. Denney. She may resume Norvasc and metoprolol if blood pressure is greater than 140/90. Do not resume chlorthalidone and valsartan until evaluation by primary care provider. She should discuss with her primary care provider about her abnormal hemoglobin A1/c of 6.6. She should avoid caffeinated drinks and spicy food and also high fat food. The patient and were instructed to return to the patient to the [id number] if she has worsening abdominal pain, cramping, epigastric pain that is not relieved by medication or anything else concerning to the patient and family. All of this explained to this patient and at the time of discharge and all questions answered. Time spent: 45 minutes. My preceptor for this patient encounter was Dr. Franco. The preceptor was physically present in the building during the encounter and was fully available. As needed, all aspects of the patient interview, examination, medical decision making process, and medical care plan development were reviewed and approved by the preceptor. The preceptor is aware and concurs with the plan as stated in the body of this note and will attest to such by his/her cosignature.
== END 2016-07-22 12:15 | disposition home or self-care (01) | DRG 392 ==
LOC: M ED 15:53 → M ED INP 17:45 → M PED 20:24
PROVIDERS: ADMIT Internal Medicine; ATTEND Internal Medicine
DX: K29.70 Gastritis, unspecified, without bleeding (principal); N17.9 Acute kidney failure, unspecified; K59.00 Constipation, unspecified; R63.4 Abnormal weight loss; K22.70 Barrett's esophagus without dysplasia; K80.20 Calculus of gallbladder without cholecystitis without obstruction; E78.5 Hyperlipidemia, unspecified; G43.909 Migraine, unspecified, not intractable, without status migrainosus; M54.5 Low back pain; F41.9 Anxiety disorder, unspecified; F32.9 Major depressive disorder, single episode, unspecified; K21.0 Gastro-esophageal reflux disease with esophagitis; E66.9 Obesity, unspecified; E87.6 Hypokalemia; I10 Essential (primary) hypertension; E86.0 Dehydration; I95.9 Hypotension, unspecified; Z68.34 Body mass index [BMI] 34.0-34.9, adult; Z79.899 Other long term (current) drug therapy

== ENCOUNTER → 2016-07-18 | Outpatient (REF) | payer OTHER ==
[~2016-07-18] MED LIST changes: +ATOR1TAB19 PO; +BUPR1TAB17 PO; +CHLO125TA PO; +CLOT1CRE71 TOP; +COLA100C3 PO; +LINZ145C PO; +METO-209 PO; +MIRA3350 PO; +MORP-38 PO; +NEXI40CA PO; +PROP40TA PO; +TOPI25CA PO; +TOPI50TA4 PO; +VALS1TAB48 PO
== END ==
LOC: M LAB REF 16:29
PROVIDERS: ATTEND Internal Medicine
DX: J11.89 Influenza due to unidentified influenza virus with other manifestations (principal)

== ENCOUNTER 2016-07-29 15:14 | Emergency (ER) | payer OTHER ==
[~2016-07-29] VITALS: Ht 160 cm; Wt 93.9 kg
[~2016-07-29 15:14] MED LIST changes: +ATOR1TAB19 PO; +BUPR1TAB17 PO; +CHLO125TA PO; +CLOT1CRE71 TOP; +COLA100C3 PO; +Hyoscyamine/Maalox/Lidoca Visc PO; +LINZ145C PO; +METO-209 PO; +MIRA3350 PO; +MORP-38 PO; +MYLASUS16 PO; +NEXI40CA PO; +ONDA4TAB6 PO; +PANT40TA2 PO; +PROP40TA PO; +SUCR10SS PO; +TOPI25CA PO; +TOPI50TA4 PO; +VALS1TAB48 PO
[2016-07-29] MEDS ORDERED: TERA10CA3 PO (15:32)
[2016-07-29] MEDS ORDERED: METO5TAB2 PO (15:32)
[2016-07-29] MEDS ORDERED: VALS1TAB48 PO (15:32)
[2016-07-29] MEDS ORDERED: NEXI1CAP4 PO (15:32)
[2016-07-29] MEDS ORDERED: MORPHINE 2 MG/ML 1ML SYRINGE IV ONE (16:15)
[2016-07-29 16:30] LABS: BASO # 0.1 K/mm3 (0.0-0.2); BASO % 1.9 % (0.0-1.0); EOS # 0.2 K/mm3 (0.0-0.50); EOS % 3.4 % (0.0-3.0); LARGE UNSTAINED CELL # 0.2 K/mm3 (0.0-0.4); LARGE UNSTAINED CELL % 2.4 % (0.0-4.0); LYMPH # 1.9 K/mm3 (1.5-4.5); LYMPH % 28.6 % (24.0-44.0); MEAN CORPUSCULAR HGB CONC 34.2 g/dl (32.0-36.5); MEAN CORPUSCULAR VOLUME 90.5 fl (80.0-96.0); MONO # 0.4 K/mm3 (0.0-0.8); NEUTROPHILS # 3.6 K/mm3 (1.8-7.7); NEUTROPHILS % 57.7 % (36.0-66.0); PLATELET COUNT, AUTOMATED 340 k/mm3 (150-450); RED CELL DISTRIBUTION WIDTH 12.8 % (11.5-14.5); WHITE BLOOD COUNT 6.2 K/mm3 (4.0-10.0)
[2016-07-29] MEDS ORDERED: SUMAtriptan SUCCINATE 6 MG/0.5 ML VIAL SC ONE (16:30)
[2016-07-29 16:35] LABS: INR 0.91
[2016-07-29 16:53] LABS: ALBUMIN 3.7 GM/DL (3.2-5.2); ALBUMIN/GLOBULIN RATIO 1.09 (1.00-1.93); ALKALINE PHOSPHATASE 104 U/L (45-117); ALT/SGPT 90 U/L (12-78); ANION GAP 10 MEQ/L (8-16); AST/SGOT 21 U/L (15-37); BILIRUBIN,DIRECT 0.2 MG/DL (0.0-0.2); BILIRUBIN,TOTAL 0.5 MG/DL (0.2-1.0); BLOOD UREA NITROGEN 9 MG/DL (7-18); CALCIUM LEVEL 8.5 MG/DL (8.5-10.1); CARBON DIOXIDE LEVEL 23 MEQ/L (21-32); CHLORIDE LEVEL 105 MEQ/L (98-107); CREATININE FOR GFR 0.94 MG/DL (0.55-1.02); GLOMERULAR FILTRATION RATE > 60.0 (>51); GLUCOSE, FASTING 90 MG/DL (70-105); POTASSIUM SERUM 3.5 MEQ/L (3.5-5.1); SODIUM LEVEL 138 MEQ/L (136-145); TOTAL PROTEIN 7.1 GM/DL (6.4-8.2)
[2016-07-29] MEDS ORDERED: METOCLOPRAMIDE INJ 10MG/2ML VIAL (J2765) IV ONE (17:00)
[2016-07-29] MEDS ORDERED: KETOROLAC 30 MG/ML VIAL (J1885) IV ONE (17:00)
--- NOTE | 2016-07-29 18:40 | REPUSA ---
CLINICAL HISTORY: Headache TECHNIQUE: Head CT without contrast COMPARISON: August 05, 2012. Brain: No intracranial hemorrhage, hydrocephalus, acute parenchymal edema or evident mass. Calvarium: Unremarkable. Sinuses (partially visualized): Clear. IMPRESSION: No acute intracranial findings.
[2016-07-29] MEDS ORDERED: NAPR500T2 PO (18:44)
[2016-07-29 18:58] VITALS: BP 147/89
--- NOTE | 2016-07-30 14:44 | ECGEPIP ---
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
== END 2016-07-29 19:18 | disposition home or self-care (01) ==
LOC: M ED 16:04
DX: G43.709 Chronic migraine without aura, not intractable, without status migrainosus (principal); I16.0 Hypertensive urgency; E78.5 Hyperlipidemia, unspecified; F41.9 Anxiety disorder, unspecified; M54.5 Low back pain; F32.9 Major depressive disorder, single episode, unspecified; Z79.899 Other long term (current) drug therapy
CPT/HCPCS: 70450; 80048; 80076; 82550; 82553; 83605; 83690; 85025; 85610; 85652; 85730; 86140; 93005; 93041; 96372; 96374; 96375; 99284; J1885; J2765

== ENCOUNTER → 2016-09-04 | Outpatient (CLI) | payer OTHER ==
[~2016-09-04] VITALS: Ht 160 cm; Wt 89.4 kg
[~2016-09-04] MED LIST changes: +ATEN50TA2 PO; +METO5TAB2 PO; +NAPR500T2 PO; +NEXI1CAP4 PO; +NS 1,000 ML IV ONE; +PROPOFOL 200 MG/20 ML VIAL As Ordered ONE; +SUCR1SUS PO; +TERA10CA3 PO; +fentaNYL 100 MCG/2 ML INJECTION (J3010) As Ordered ONE
--- NOTE | 2016-09-04 15:15 | ROOR ---
Patient Name: Elizabeth Lockhart Procedure Date: 09/04/2016 2:56 PM Date of : 1960 Age: 56 Room: [facility] Gender: Female Note Status: Finalized Procedure: Upper Endoscopy + Biopsies Indications: Epigastric abdominal pain, Heartburn, Nausea with vomiting Providers: Ez Bray MD Referring MD: Reba Denney DO, Hilario Adams DO Requesting Provider: Medicines: Monitored Anesthesia Care Complications: No immediate complications. Procedure: Pre-Anesthesia Assessment: - The heart rate, respiratory rate, oxygen saturations, blood pressure, adequacy of pulmonary ventilation, and response to care were monitored throughout the procedure. The Endoscope was introduced through the mouth, and advanced to the second part of duodenum. The upper GI endoscopy was accomplished without difficulty. The patient tolerated the procedure well. Findings: The Z-line was irregular and was found 35 cm from the incisors. Multiple biopsies were obtained with cold forceps for evaluation to rule out Stewart's Esophagus randomly at the gastroesophageal junction. A small hiatal hernia was present. Localized mild inflammation characterized by congestion (edema) and erythema was found in the gastric antrum. Biopsies were taken with a cold forceps for Helicobacter pylori testing. The exam was otherwise without abnormality. Impression: - Z-line irregular, 35 cm from the incisors. - Small hiatal hernia. - Acute gastritis. Biopsied. - The examination was otherwise normal. - Multiple biopsies were obtained at the gastroesophageal junction. - The examination was otherwise normal. Recommendation: - Patient has a contact number available for emergencies. The signs and symptoms of potential delayed complications were discussed with the patient. Return to normal activities tomorrow. Written discharge instructions were provided to the patient. - High fiber diet. - Discharge patient to home. - Follow an antireflux regimen. - Continue present medications. - Await pathology results. - Telephone GI clinic for pathology results in 1 week. - Check Portal Online for Path Results.([email or web address]) - Return to referring physician. - The findings and recommendations were discussed with the patient's family. Ez Bray MD Ez Bray MD 09/04/2016 3:14:45 PM This report has been signed electronically. Number of Addenda: 0 Note Initiated On: 09/04/2016 2:56 PM Estimated Blood Loss: Estimated blood loss: none.
[2016-09-04 15:39] VITALS: BP 96/67
== END ==
LOC: M OPP 13:01
PROVIDERS: ATTEND Internal Medicine Gastroenterology
DX: R10.13 Epigastric pain (principal); R11.2 Nausea with vomiting, unspecified; K22.70 Barrett's esophagus without dysplasia; K29.00 Acute gastritis without bleeding; K44.9 Diaphragmatic hernia without obstruction or gangrene; K22.8 Other specified diseases of esophagus; K21.9 Gastro-esophageal reflux disease without esophagitis; R13.10 Dysphagia, unspecified; I10 Essential (primary) hypertension; E66.9 Obesity, unspecified; G89.29 Other chronic pain; M54.9 Dorsalgia, unspecified; R53.83 Other fatigue; Z79.899 Other long term (current) drug therapy
CPT/HCPCS: 43239; 88305; J3010

== ENCOUNTER → 2016-09-15 | Day surgery (SDC) | payer OTHER ==
[~2016-09-15] VITALS: Ht 160 cm; Wt 88.9 kg
[~2016-09-15] MED LIST changes: +ACETAMINOPHEN TAB 650MG DOSE (2X325MG) PO PRN; +BUPIVACAINE/EPIN 0.25% 30 ML VIAL As Ordered ONE; +GLYCOPYRROLATE INJ 0.2 MG/ML 2 ML VIAL As Ordered ONE; +HYDROmorphone HCL 1 MG/ML SYRINGE (J1170) IV PRN; +KETOROLAC 60 MG/2 ML VIAL (J1885) As Ordered ONE; +LIDOCAINE 2% INJ 100 MG/5 ML SDV (FOR ANES.) As Ordered ONE; +LR 1,000 ML IV SCH; +METOCLOPRAMIDE INJ 10MG/2ML VIAL (J2765) As Ordered ONE; +METOCLOPRAMIDE INJ 10MG/2ML VIAL (J2765) IV PRN; +MIDAZOLAM INJ 2 MG/2 ML VIAL (J2250) As Ordered ONE; +NEOSTIGMINE 1MG/ML 5 ML SYRINGE (J2710) As Ordered ONE; +NORCO, ANEXSIA 5/325MG TABLET (HYDROcodone/ACETAMINOPHEN) PO PRN; -NS 1,000 ML IV ONE; +ONDANSETRON 4MG/2ML VIAL (J2405) As Ordered ONE; +ONDANSETRON 4MG/2ML VIAL (J2405) IV PRN; +ROCURONIUM BROMIDE 50 MG/5 ML VIAL As Ordered ONE; +SEVOFLURANE INHAL SOLN 250 ML BTL As Ordered ONE; -fentaNYL 100 MCG/2 ML INJECTION (J3010) As Ordered ONE; +fentaNYL 100 MCG/2 ML INJECTION (J3010) IV PRN; +fentaNYL 250 MCG/5 ML INJECTION (J3010) As Ordered ONE; +hydrALAZINE INJ 20 MG/ML VIAL As Ordered ONE
[2016-09-15 10:30] VITALS: BP 132/78
--- NOTE | 2016-09-16 08:16 | RO ---
DATE OF PROCEDURE: 09/15/2016 PREOPERATIVE DIAGNOSIS: Symptomatic cholelithiasis. POSTOPERATIVE DIAGNOSIS: Symptomatic cholelithiasis. PROCEDURE: Laparoscopic cholecystectomy. SURGEON: Dr. Hilario Adams SENIOR CYTOGENETICS LABORATORY DIRECTOR: None. ANESTHESIA: General. ESTIMATED BLOOD LOSS: 5. COMPLICATIONS: None. INDICATIONS FOR PROCEDURE: The patient is a 56-year-old female who presents with right upper quadrant abdominal pain and found to have gallstones. Recommendation was to proceed with laparoscopic possible open cholecystectomy. The risks and benefits of the procedure not limited to, but including bleeding, infection, hernia formation, damage to surrounding structures and need for further surgery were discussed in detail with the patient and informed consent was obtained and the procedure was planned. PROCEDURE: The patient brought back to operating room six and after sufficient sedation the abdomen was sterilely prepped and draped. Next, a time-out was done to confirm proper patient and proper procedure. Following that, a stab incision made in the left lower quadrant. Veress needle was inserted and the abdomen was insufflated to 15 mmHg. Next, 5 mm incision made supraumbilically and a 5 mm Optiview port was used to gain access to the abdomen. Once the abdomen was entered, the Veress needle site was examined with no signs of injury. The Veress needle was then removed. A 10 mm port placed subxiphoid and two 5 mm ports in the right upper quadrant. The fundus of the gallbladder was grasped and elevated up towards the right shoulder. The cystic duct and cystic artery were both then dissected free using a combination of blunt and sharp dissection. Once they were both clearly identified, they were both doubly clipped and cut. The gallbladder was then removed from the gallbladder fossa using electrocautery. It was brought out through the 11 mm port site with a 10 mm EndoCatch bag. The right upper quadrant was then examined to confirm for hemostasis. The abdomen was then desufflated. The skin incisions closed with #4-0 Vicryl subcuticular sutures. The abdomen was cleaned and dried. Steri-Strips, 4x4 and tape were applied, thus ending the procedure.
--- NOTE | 2016-09-18 00:22 | ECGEPIP ---
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
== END ==
LOC: M SDC 05:55
PROVIDERS: ATTEND Surgery
DX: K80.10 Calculus of gallbladder with chronic cholecystitis without obstruction (principal); I10 Essential (primary) hypertension; F41.9 Anxiety disorder, unspecified; K21.9 Gastro-esophageal reflux disease without esophagitis; F32.9 Major depressive disorder, single episode, unspecified; M51.9 Unspecified thoracic, thoracolumbar and lumbosacral intervertebral disc disorder; K22.70 Barrett's esophagus without dysplasia; M19.90 Unspecified osteoarthritis, unspecified site; E66.9 Obesity, unspecified; R06.83 Snoring; Z96.89 Presence of other specified functional implants; Z79.899 Other long term (current) drug therapy
CPT/HCPCS: 47562; 88304; 93005; J0690; J1885; J2250; J2405; J2710; J2765; J3010

== ENCOUNTER 2016-11-01 12:48 | Outpatient (CLI) | payer OTHER ==
[~2016-11-01] VITALS: Ht 160 cm; Wt 90.7 kg
[~2016-11-01 12:48] MED LIST changes: -ACETAMINOPHEN TAB 650MG DOSE (2X325MG) PO PRN; -BUPIVACAINE/EPIN 0.25% 30 ML VIAL As Ordered ONE; -BUPR1TAB17 PO; +BUPR1TAB53 PO; -COLA100C3 PO; +COLA100C5 PO; -GLYCOPYRROLATE INJ 0.2 MG/ML 2 ML VIAL As Ordered ONE; -HYDROmorphone HCL 1 MG/ML SYRINGE (J1170) IV PRN; -KETOROLAC 60 MG/2 ML VIAL (J1885) As Ordered ONE; +LOSA25TA8 PO; -LR 1,000 ML IV SCH; -METO-209 PO; +METO1TAB33 PO; -METOCLOPRAMIDE INJ 10MG/2ML VIAL (J2765) As Ordered ONE; -METOCLOPRAMIDE INJ 10MG/2ML VIAL (J2765) IV PRN; -MIDAZOLAM INJ 2 MG/2 ML VIAL (J2250) As Ordered ONE; -NAPR500T2 PO; +NAPR500T3 PO; -NEOSTIGMINE 1MG/ML 5 ML SYRINGE (J2710) As Ordered ONE; -NORCO, ANEXSIA 5/325MG TABLET (HYDROcodone/ACETAMINOPHEN) PO PRN; -ONDANSETRON 4MG/2ML VIAL (J2405) As Ordered ONE; -ONDANSETRON 4MG/2ML VIAL (J2405) IV PRN; -ROCURONIUM BROMIDE 50 MG/5 ML VIAL As Ordered ONE; -SEVOFLURANE INHAL SOLN 250 ML BTL As Ordered ONE; +SUCR1SS PO; -TOPI50TA4 PO; +TOPI50TA9 PO; -fentaNYL 100 MCG/2 ML INJECTION (J3010) IV PRN; -fentaNYL 250 MCG/5 ML INJECTION (J3010) As Ordered ONE; -hydrALAZINE INJ 20 MG/ML VIAL As Ordered ONE
[2016-11-01] MEDS ORDERED: NS 1,000 ML IV ONE (13:00)
[2016-11-01] MEDS ORDERED: PROPOFOL 200 MG/20 ML VIAL As Ordered ONE (14:38)
--- NOTE | 2016-11-01 14:58 | ROOR ---
Patient Name: Elizabeth Lockhart Procedure Date: 11/01/2016 2:27 PM Date of : 1960 Age: 56 Room: [facility] Gender: Female Note Status: Finalized Procedure: Total Colonoscopy to the Cecum + Biopsy Polypectomy Indications: Screening for colorectal malignant neoplasm Providers: Ez Bray MD Referring MD: Reba Denney DO Requesting Provider: Medicines: Monitored Anesthesia Care Complications: No immediate complications. Procedure: Pre-Anesthesia Assessment: - The heart rate, respiratory rate, oxygen saturations, blood pressure, adequacy of pulmonary ventilation, and response to care were monitored throughout the procedure. The Colonoscope was introduced through the anus and advanced to the cecum, identified by appendiceal orifice and ileocecal valve. The colonoscopy was performed without difficulty. The patient tolerated the procedure well. The quality of the bowel preparation was excellent. Findings: The perianal and digital rectal examinations were normal. Non-bleeding internal hemorrhoids were found during retroflexion. The hemorrhoids were small and Grade I (internal hemorrhoids that do not prolapse). Multiple small and large-mouthed diverticula were found in the recto-sigmoid colon, sigmoid colon and descending colon. A small polyp was found in the cecum. The polyp was sessile. The polyp was removed with a hot snare. Resection and retrieval were complete. The exam was otherwise without abnormality on direct and retroflexion views. Impression: - Non-bleeding internal hemorrhoids. - Diverticulosis in the recto-sigmoid colon, in the sigmoid colon and in the descending colon. - One small polyp in the cecum, removed with a hot snare. Resected and retrieved. - The examination was otherwise normal on direct and retroflexion views. - The exam was otherwise normal to the cecum. Recommendation: - Patient has a contact number available for emergencies. The signs and symptoms of potential delayed complications were discussed with the patient. Return to normal activities tomorrow. Written discharge instructions were provided to the patient. - High fiber diet. - Discharge patient to home. - Continue present medications. - Await pathology results. - Telephone GI clinic for pathology results in 1 week. - Check Portal Online for Path Results.([email or web address] - The findings and recommendations were discussed with the patient's family. Ez Bray MD Ez Bray MD 11/01/2016 2:57:25 PM This report has been signed electronically. Number of Addenda: 0 Note Initiated On: 11/01/2016 2:27 PM Estimated Blood Loss: Estimated blood loss: none.
[2016-11-01 15:31] VITALS: BP 116/82
== END 2016-11-01 15:32 | disposition home or self-care (01) ==
LOC: M OPP 12:48
PROVIDERS: ATTEND Internal Medicine Gastroenterology
DX: R10.9 Unspecified abdominal pain (principal); R11.2 Nausea with vomiting, unspecified; D12.0 Benign neoplasm of cecum; K64.0 First degree hemorrhoids; K57.30 Diverticulosis of large intestine without perforation or abscess without bleeding; K21.9 Gastro-esophageal reflux disease without esophagitis; R13.10 Dysphagia, unspecified; G89.4 Chronic pain syndrome; E66.9 Obesity, unspecified; I10 Essential (primary) hypertension; E78.5 Hyperlipidemia, unspecified; M54.9 Dorsalgia, unspecified; F41.9 Anxiety disorder, unspecified; F32.9 Major depressive disorder, single episode, unspecified; G43.909 Migraine, unspecified, not intractable, without status migrainosus; G47.8 Other sleep disorders; G47.30 Sleep apnea, unspecified; R06.83 Snoring; Z97.8 Presence of other specified devices; Z98.1 Arthrodesis status; Z79.899 Other long term (current) drug therapy

== ENCOUNTER → 2016-12-01 | Outpatient (CLI) | payer OTHER ==
[~2016-12-01] MED LIST changes: -LIDOCAINE 2% INJ 100 MG/5 ML SDV (FOR ANES.) As Ordered ONE; -PROPOFOL 200 MG/20 ML VIAL As Ordered ONE
--- NOTE | 2016-12-01 13:59 | REPMRS ---
Patient History The patient states she has not had a clinical breast exam in over a year. Patient is postmenopausal. Family history of breast cancer in mother at age 50 or over, breast cancer in maternal aunt at age 50 or over, and breast cancer in maternal cousin. Digital Woman Screen Mammo: December 01, 2016 - Exam #: [id number] Bilateral CC and MLO view(s) were taken. Technologist: Odessa Garcia, Technologist Prior study comparison: November 03, 2014, digital woman screen mammo performed at [facility] to [facility]. April 16, 2012, digital woman screen mammo performed at [facility] to [facility]. March 10, 2008, bilateral screening mammogram performed at [facility] to [facility]. FINDINGS: There are scattered fibroglandular densities. There has been no change in the appearance of the mammogram from the prior studies. There is a mild amount of scattered fibroglandular density which is fairly symmetric. There is no interval development of dominant mass, architectural distortion, or clustered microcalcification suggestive of malignancy. ASSESSMENT: BI-RADS/ACR category 1 mammogram. Negative. Recommendation Routine screening mammogram in 1 year (for women over age 40). This mammogram was interpreted with the aid of an FDA-approved computer-aided dectection system. Electronically Signed By: Teodoro Fox MD 12/01/16 1141
== END ==
LOC: M WHC 13:05
PROVIDERS: ATTEND Internal Medicine
DX: Z12.31 Encounter for screening mammogram for malignant neoplasm of breast (principal); Z85.3 Personal history of malignant neoplasm of breast

== ENCOUNTER → 2017-06-21 | Outpatient (REF) | payer OTHER | LOC: M LAB REF 16:29 | DX: N39.0 Urinary tract infection, site not specified (principal) ==

== ENCOUNTER → 2017-11-08 | Outpatient (REF) | payer OTHER | LOC: M LAB REF 12:09 | DX: R35.0 Frequency of micturition (principal) | CPT/HCPCS: 87186 ==

== ENCOUNTER → 2017-11-09 | Outpatient (CLI) | payer OTHER ==
[~2017-11-09] MED LIST changes: -ADVI200C5 PO; -AMLO10TA2 PO; -ATEN50TA2 PO; -ATOR1TAB19 PO; -BUPR1TAB53 PO; -CHLO125TA PO; -CLOT1CRE71 TOP; -COLA100C5 PO; -DULO1CAP3 PO; -FURO20TA2 PO; -Hyoscyamine/Maalox/Lidoca Visc PO; +ISOVUE-370 76% 100ML VIAL (Q9967) As Ordered; -LINZ145C PO; -LISI20TA3 PO; -LOSA100T36 PO; -LOSA25TA8 PO; -MELO7.5T3 PO; -METO100T PO; -METO1TAB33 PO; -METO5TAB2 PO; -MIRA3350 PO; -MORP-38 PO; -MYLASUS16 PO; -NAPR500T3 PO; -NEXI1CAP4 PO; -NEXI40CA PO; -OMEP40CA2 PO; -ONDA4TAB6 PO; -PANT40TA2 PO; -PERCOCET PO; -PROP40TA PO; -SENO8.6T9 PO; -SUCR10SS PO; -SUCR1SS PO; -SUCR1SUS PO; -TERA10CA3 PO; -TOPI25CA PO; -TOPI50TA9 PO; -VALS1TAB48 PO
== END ==
LOC: M RAD 08:36
DX: R42 Dizziness and giddiness (principal); H53.8 Other visual disturbances; G44.221 Chronic tension-type headache, intractable
CPT/HCPCS: Q9967

== ENCOUNTER → 2018-04-24 | Outpatient (REF) | payer OTHER ==
[~2018-04-24] MED LIST changes: +ADVI200C5 PO; +AMLO10TA2 PO; +AMLO10TA5 PO; +ATEN50TA2 PO; +ATOR1TAB19 PO; +BUPR1TAB53 PO; +CHLO125TA PO; +CLOT1CRE71 TOP; +COLA100C5 PO; +DULO1CAP3 PO; +FURO20TA2 PO; +Hyoscyamine/Maalox/Lidoca Visc PO; -ISOVUE-370 76% 100ML VIAL (Q9967) As Ordered; +LINZ145C PO; +LISI20TA3 PO; +LOSA100T36 PO; +LOSA25TA14 PO; +MELO7.5T3 PO; +METO100T PO; +METO1TAB33 PO; +METO5TAB2 PO; +MIRA3350 PO; +MORP-38 PO; +MYLASUS16 PO; +NAPR-885 PO; +NEXI1CAP4 PO; +NEXI40CA PO; +OMEP40CA2 PO; +ONDA4TAB6 PO; +PANT40TA3 PO; +PERCOCET PO; +PROP40TA62 PO; +SENO8.6T9 PO; +SUCR10SS PO; +SUCR1SS PO; +SUCR1SUS PO; +TERA10CA3 PO; +TOPI25CA PO; +TOPI50TA9 PO; +VALS1TAB48 PO
== END ==
LOC: M LAB REF 11:59
PROVIDERS: ATTEND Nurse Practitioner Adult Health
DX: N39.0 Urinary tract infection, site not specified (principal)

== ENCOUNTER → 2018-07-08 | Outpatient (REF) | payer OTHER ==
[~2018-07-08] MED LIST changes: +OXYC1TAB23 PO; -PERCOCET PO; -VALS1TAB48 PO; +VALS1TAB68 PO
== END ==
LOC: M LAB REF 12:20
PROVIDERS: ATTEND Physician Assistant
DX: N39.0 Urinary tract infection, site not specified (principal)

== ENCOUNTER → 2018-07-25 | Outpatient (CLI) | payer OTHER ==
[2018-07-25 13:27] LABS: HEMATOCRIT 41.1 % (36.0-47.0); HEMOGLOBIN 14.2 g/dl (12.0-15.5); MEAN CORPUSCULAR HEMOGLOBIN 31.1 pg (27.0-33.0); MEAN CORPUSCULAR HGB CONC 34.5 g/dl (32.0-36.5); MEAN CORPUSCULAR VOLUME 90.1 fl (80.0-96.0); PLATELET COUNT, AUTOMATED 243 10^3/uL (150-450); RED BLOOD COUNT 4.56 10^6/uL (4.00-5.40); WHITE BLOOD COUNT 5.7 10^3/uL (4.0-10.0)
[2018-07-25 13:35] LABS: ALBUMIN 3.7 GM/DL (3.2-5.2); BILIRUBIN,TOTAL 0.7 MG/DL (0.2-1.0); CHOLESTEROL RISK RATIO 4.1 (<5); CREATININE FOR GFR 1.07 MG/DL (0.55-1.30); GLOMERULAR FILTRATION RATE 56.1 (>51); POTASSIUM SERUM 3.4 MEQ/L (3.5-5.1); TOTAL PROTEIN 7.4 GM/DL (6.4-8.2)
== END ==
LOC: M WUC 08:43
PROVIDERS: ATTEND Physician Assistant
DX: I11.9 Hypertensive heart disease without heart failure (principal)

== ENCOUNTER → 2018-08-09 | Outpatient (CLI) | payer OTHER | LOC: M WUC 12:09 | PROVIDERS: ATTEND Physician Assistant | DX: E87.6 Hypokalemia (principal) ==

== ENCOUNTER → 2018-09-01 | Outpatient (CLI) | payer OTHER ==
--- NOTE | 2018-09-01 12:12 | REP ---
LEFT ANKLE, FOUR VIEWS: HISTORY: Injury. There is no acute fracture or dislocation. A calcified density is present inferior to the distal tibia. This represents ligamentous or tendon calcification or accessory ossification center. A calcification is present lateral to the distal tibia. This represents ligamentous or tendon calcification. A calcification is present posterior to the calcaneus. This represents tendon calcification. Soft tissue swelling is present. IMPRESSION: There is no acute fracture or dislocation. Electronically Signed by Seth Rodríguez MD 09/01/2018 12:16 P
== END ==
LOC: M WUC 11:15
PROVIDERS: ATTEND Physician Assistant
DX: S90.02XA Contusion of left ankle, initial encounter (principal); X58.XXXA Exposure to other specified factors, initial encounter; Y92.89 Other specified places as the place of occurrence of the external cause

== ENCOUNTER → 2018-11-22 | Outpatient (REF) | payer OTHER ==
[~2018-11-22] MED LIST changes: -DULO1CAP3 PO; +DULO1CAP6 PO; -MORP-38 PO; +MORP-69 PO; -OMEP40CA2 PO; +OMEP40CA97 PO; +SUCR1ORA PO; -SUCR1SUS PO; -TOPI25CA PO; +TOPI25CA3 PO
== END ==
LOC: M LAB REF 12:33
PROVIDERS: ATTEND Nurse Practitioner Adult Health
DX: R30.0 Dysuria (principal)

== ENCOUNTER → 2019-01-06 | Outpatient (CLI) | payer OTHER ==
[~2019-01-06] MED LIST changes: -SUCR1ORA PO; +SUCR1SUS PO
[2019-01-06 12:42] LABS: BASO % 0.7 % (0.0-1.0); EOS # 0.1 10^3/uL (0.0-0.5); EOS % 1.3 % (0.0-3.0); HEMATOCRIT 40.2 % (36.0-47.0); HEMOGLOBIN 14.2 g/dl (12.0-15.5); LYMPH # 2.5 10^3/uL (1.5-5.0); LYMPH % 41.5 % (24.0-44.0); MEAN CORPUSCULAR HEMOGLOBIN 31.6 pg (27.0-33.0); MEAN CORPUSCULAR HGB CONC 35.3 g/dl (32.0-36.5); MEAN CORPUSCULAR VOLUME 89.3 fl (80.0-96.0); MONO # 0.6 10^3/uL (0.0-0.8); MONO % 9.5 % (0.0-5.0); NEUTROPHILS # 2.8 10^3/uL (1.5-8.5); NEUTROPHILS % 46.8 % (36.0-66.0); PLATELET COUNT, AUTOMATED 271 10^3/uL (150-450)
[2019-01-06 13:15] LABS: ALBUMIN 3.9 GM/DL (3.2-5.2); ALT/SGPT 26 U/L (12-78); BILIRUBIN,TOTAL 0.5 MG/DL (0.2-1.0); BLOOD UREA NITROGEN 12 MG/DL (7-18); CALCIUM LEVEL 9.5 MG/DL (8.5-10.1); CARBON DIOXIDE LEVEL 33 MEQ/L (21-32); CHLORIDE LEVEL 97 MEQ/L (98-107); GLOMERULAR FILTRATION RATE > 60.0 (>51); GLUCOSE, FASTING 86 MG/DL (70-100); POTASSIUM SERUM 3.6 MEQ/L (3.5-5.1); SODIUM LEVEL 137 MEQ/L (136-145); TOTAL PROTEIN 7.5 GM/DL (6.4-8.2); VALPROIC ACID (DEPAKOTE) < 3.0 UG/ML (50.0-100.0)
== END ==
LOC: M WUC 10:45
PROVIDERS: ATTEND Psychiatry & Neurology Neurology
DX: R51 Headache (principal)

== ENCOUNTER → 2019-01-15 | Outpatient (REF) | payer OTHER | LOC: M LAB REF 16:31 | PROVIDERS: ATTEND Nurse Practitioner Family | DX: N39.0 Urinary tract infection, site not specified (principal) ==

== ENCOUNTER → 2020-05-20 | Outpatient (REF) | payer OTHER ==
[~2020-05-20] MED LIST changes: -AMLO10TA5 PO; +AMLO1TAB25 PO; +PANT40TA29 PO; -PANT40TA3 PO; -SUCR10SS PO; +SUCR1ORA PO; +SUCR1ORA2 PO; -SUCR1SUS PO
[2020-05-20 18:26] LABS: C REACTIVE PROTEIN QUANTITATIV < 0.30 MG/DL (0.00-0.30); URIC ACID 6.6 MG/DL (2.6-6.0)
[2020-05-22 13:33] LABS: ANTINUCLEAR ANTIBODIES DIRECT Negative (Negative)
== END ==
LOC: M LAB REF 16:48
PROVIDERS: ATTEND Nurse Practitioner Adult Health
DX: M25.50 Pain in unspecified joint (principal)

== ENCOUNTER → 2020-06-22 | Outpatient (REF) | payer OTHER | LOC: M WUC 15:54 | PROVIDERS: ATTEND Physician Assistant | DX: R30.0 Dysuria (principal); R42 Dizziness and giddiness ==

== ENCOUNTER → 2020-08-10 | Outpatient (CLI) | payer OTHER ==
[2020-08-10 16:33] LABS: CREATININE FOR GFR 1.21 MG/DL (0.55-1.30); GLOMERULAR FILTRATION RATE 48.3 (>45)
== END ==
LOC: M WUC 14:53
PROVIDERS: ATTEND Registered Nurse Critical Care Medicine
DX: M48.061 Spinal stenosis, lumbar region without neurogenic claudication (principal); M96.1 Postlaminectomy syndrome, not elsewhere classified

== ENCOUNTER → 2020-09-16 | Outpatient (REF) | payer OTHER ==
[~2020-09-16] MED LIST changes: +OMEP40CA4 PO; -OMEP40CA97 PO
== END ==
LOC: M WUC 19:44
PROVIDERS: ATTEND Physician Assistant
DX: N39.0 Urinary tract infection, site not specified (principal)

== ENCOUNTER → 2020-10-05 | Outpatient (REF) | payer OTHER ==
[~2020-10-05] MED LIST changes: +LOSA25TA13 PO; -LOSA25TA14 PO; -TOPI25CA3 PO; +TOPI25CA5 PO
== END ==
LOC: M WUC 15:50
PROVIDERS: ATTEND Physician Assistant
DX: R30.0 Dysuria (principal)

== ENCOUNTER → 2020-11-25 | Outpatient (CLI) | payer OTHER ==
[~2020-11-25] MED LIST changes: -LOSA25TA13 PO; +LOSA25TA14 PO; +TOPI25CA3 PO; -TOPI25CA5 PO
[2020-11-25 11:44] LABS: BASO # 0.1 10^3/uL (0.0-0.2); BASO % 0.9 % (0.0-1.0); EOS # 0.1 10^3/uL (0.0-0.5); EOS % 2.5 % (0.0-3.0); HEMATOCRIT 42.6 % (36.0-47.0); HEMOGLOBIN 14.7 g/dl (12.0-15.5); LYMPH # 2.5 10^3/uL (1.5-5.0); LYMPH % 44.4 % (24.0-44.0); MEAN CORPUSCULAR HGB CONC 34.5 g/dl (32.0-36.5); MEAN CORPUSCULAR VOLUME 89.9 fl (80.0-96.0); MONO # 0.6 10^3/uL (0.0-0.8); MONO % 10.7 % (2.0-8.0); NEUTROPHILS # 2.3 10^3/uL (1.5-8.5); NEUTROPHILS % 41.3 % (36.0-66.0); PLATELET COUNT, AUTOMATED 332 10^3/uL (150-450); RED BLOOD COUNT 4.74 10^6/uL (4.00-5.40); WHITE BLOOD COUNT 5.6 10^3/uL (4.0-10.0)
[2020-11-25 12:06] LABS: CALCIUM LEVEL 9.7 MG/DL (8.8-10.2); CREATININE FOR GFR 1.05 MG/DL (0.55-1.30); GLOMERULAR FILTRATION RATE 56.9 (>45)
== END ==
LOC: M WUC 09:48
PROVIDERS: ATTEND Physician Assistant
DX: N39.0 Urinary tract infection, site not specified (principal)

== ENCOUNTER → 2020-11-25 | Outpatient (REF) | payer OTHER | LOC: M LAB REF 11:09 | PROVIDERS: ATTEND Physician Assistant | DX: N39.0 Urinary tract infection, site not specified (principal) ==

== ENCOUNTER → 2020-12-16 | Outpatient (CLI) | payer OTHER ==
[~2020-12-16] MED LIST changes: +ISOVUE-300 61% 50ML VIAL As Ordered ONE; +LIDOCAINE 1% MDV 20ML VIAL As Ordered ONE; +TRIAMCINOLONE ACETONIDE SUSP 40 MG/ML VIAL (J3301) As Ordered ONE
--- NOTE | 2020-12-16 16:30 | REP ---
INDICATION: PRIMARY OA, LT SHOULDER. COMPARISON: None. TECHNIQUE: The procedure was performed under the direct supervision of Dr. Fox. The benefits and risks including but not limited to pain infection bleeding and anaphylaxis were explained to the patient and informed consent was obtained. The left glenohumeral joint space was localized using fluoroscopic guidance. The skin was prepped and draped in a sterile fashion. 1% lidocaine was used as a local anesthetic. Using fluoroscopic guidance a 22 gauge spinal needle was inserted and advanced into the joint. 1 mL of Isovue-300 was injected to verify placement. 6 mL of a solution containing 5 mL of 1% lidocaine and 1 mL of Kenalog 40 mg was injected. The needle was then removed. The patient tolerated the procedure well and there were no immediate complications. Less than 6 seconds of fluoroscopy time was utilized for this procedure. FINDINGS: None IMPRESSION: Fluoro guidance for left shoulder injection. <Electronically signed by Angel Salcido > 12/16/20 1612 <Electronically signed by Teodoro Fox > 12/16/20 [id number]
== END ==
LOC: M RADPRO 14:53
PROVIDERS: ATTEND Physician Assistant
DX: M19.012 Primary osteoarthritis, left shoulder (principal)
CPT/HCPCS: 20610; 77002; J3301; Q9967

== ENCOUNTER → 2020-12-22 | Outpatient (REF) | payer OTHER ==
[~2020-12-22] MED LIST changes: -ISOVUE-300 61% 50ML VIAL As Ordered ONE; -LIDOCAINE 1% MDV 20ML VIAL As Ordered ONE; -TRIAMCINOLONE ACETONIDE SUSP 40 MG/ML VIAL (J3301) As Ordered ONE
== END ==
LOC: M LAB REF 17:59
PROVIDERS: ATTEND Nurse Practitioner Adult Health
DX: M25.50 Pain in unspecified joint (principal)

== ENCOUNTER → 2021-01-21 | Outpatient (REF) | payer OTHER | LOC: M WUC 19:41 | PROVIDERS: ATTEND Physician Assistant | DX: N30.01 Acute cystitis with hematuria (principal) ==

== ENCOUNTER → 2021-02-23 | Outpatient (REF) | payer OTHER ==
[~2021-02-23] MED LIST changes: +LOSA25TA13 PO; -LOSA25TA14 PO; -TOPI25CA3 PO; +TOPI25CA5 PO
== END ==
LOC: M LAB REF 16:58
PROVIDERS: ATTEND Nurse Practitioner Adult Health
DX: M10.9 Gout, unspecified (principal)

== ENCOUNTER → 2021-04-12 | Outpatient (REF) | payer OTHER | LOC: M LAB REF 16:34 | PROVIDERS: ATTEND Nurse Practitioner Adult Health | DX: N39.0 Urinary tract infection, site not specified (principal) ==

== ENCOUNTER → 2021-06-29 | Outpatient (CLI) | payer OTHER ==
[~2021-06-29] MED LIST changes: +AJOV225I; +ALLO100T; +CHLO125TA; +HYDR-4514; +HYDR-643; +MECL-86; +OXYC-141 PO; +POTA10PO
== END ==
LOC: M LABSMTC 09:00
PROVIDERS: ATTEND Anesthesiology
DX: Z01.818 Encounter for other preprocedural examination (principal); Z11.52 Encounter for screening for COVID-19

== ENCOUNTER → 2021-08-01 | Outpatient (CLI) | payer OTHER ==
[~2021-08-01] MED LIST changes: +ISOVUE-300 61% 50ML VIAL As Ordered ONE; +LIDOCAINE 1% MDV 20ML VIAL As Ordered ONE; +TRIAMCINOLONE ACETONIDE SUSP 40 MG/ML VIAL (J3301) As Ordered ONE
== END ==
LOC: M RADPRO 12:35
PROVIDERS: ATTEND Physician Assistant
DX: M19.012 Primary osteoarthritis, left shoulder (principal)
CPT/HCPCS: 20610; 77002; J3301; Q9967

== ENCOUNTER → 2021-10-26 | Outpatient (REF) | payer OTHER ==
[~2021-10-26] MED LIST changes: -ISOVUE-300 61% 50ML VIAL As Ordered ONE; -LIDOCAINE 1% MDV 20ML VIAL As Ordered ONE; -TRIAMCINOLONE ACETONIDE SUSP 40 MG/ML VIAL (J3301) As Ordered ONE
== END ==
LOC: M LAB REF 20:23
PROVIDERS: ATTEND Physician Assistant
DX: R30.0 Dysuria (principal)

== ENCOUNTER → 2021-11-18 | Outpatient (REF) | payer OTHER | LOC: M LAB REF 16:43 | PROVIDERS: ATTEND Student in an Organized Health Care Education/Training Program | DX: R30.0 Dysuria (principal) ==

== ENCOUNTER → 2022-01-20 | Outpatient (REF) | payer OTHER | LOC: M LAB REF 16:04 | PROVIDERS: ATTEND Nurse Practitioner Adult Health | DX: L30.9 Dermatitis, unspecified (principal) ==

== ENCOUNTER → 2022-09-04 | Outpatient (REF) | payer OTHER ==
[~2022-09-04] MED LIST changes: +TOPI-254 PO; -TOPI50TA9 PO
== END ==
LOC: M LAB REF 12:14
PROVIDERS: ATTEND Student in an Organized Health Care Education/Training Program
DX: R30.0 Dysuria (principal)

== ENCOUNTER → 2022-09-24 | Outpatient (REF) | payer OTHER | LOC: M WUC 18:16 | PROVIDERS: ATTEND Student in an Organized Health Care Education/Training Program | DX: R30.0 Dysuria (principal) ==

== ENCOUNTER → 2022-11-06 | Outpatient (REF) | payer OTHER | LOC: M LAB REF 11:36 | PROVIDERS: ATTEND Nurse Practitioner Family | DX: R30.0 Dysuria (principal); N39.0 Urinary tract infection, site not specified ==

== ENCOUNTER → 2023-01-03 | Outpatient (REF) | payer OTHER ==
[2023-01-03 17:40] LABS: GLOMERULAR FILTRATION RATE 59.8 (>45)
== END ==
LOC: M LABWUC 16:46
PROVIDERS: ATTEND Pain Medicine Interventional Pain Medicine
DX: Z98.1 Arthrodesis status (principal)

== ENCOUNTER → 2023-01-26 | Outpatient (CLI) | payer OTHER | LOC: M PLARAD 12:34 | PROVIDERS: ATTEND Pain Medicine Interventional Pain Medicine | DX: Z98.1 Arthrodesis status (principal) ==

== ENCOUNTER → 2023-11-27 | Outpatient (REF) | payer OTHER ==
[~2023-11-27] MED LIST changes: +ONDA-282 PO; -ONDA4TAB6 PO; +TOPI-21 PO; -TOPI-254 PO
== END ==
LOC: M LAB REF 19:24
PROVIDERS: ATTEND Nurse Practitioner Family
DX: R30.0 Dysuria (principal)

== ENCOUNTER → 2024-01-16 | Outpatient (REF) | payer OTHER ==
[2024-01-16 15:44] LABS: C REACTIVE PROTEIN QUANTITATIV < 0.40 MG/DL (<1.0)
[2024-01-16 15:46] LABS: VITAMIN B12 LEVEL 306 PG/ML (211-911)
== END ==
LOC: M LAB REF 12:44
PROVIDERS: ATTEND Physician Assistant Medical
DX: R51.9 Headache, unspecified (principal); R53.83 Other fatigue

== ENCOUNTER → 2024-07-07 | Outpatient (REF) | payer OTHER | LOC: M LAB REF 12:08 | PROVIDERS: ATTEND Physician Assistant Medical | DX: R10.30 Lower abdominal pain, unspecified (principal); R11.0 Nausea ==

== ENCOUNTER → 2024-07-11 | Outpatient (REF) | payer OTHER ==
[2024-07-11 13:57] LABS: BASO # 0.1 10^3/uL (0.0-0.2); BASO % 1.2 % (0.0-1.0); EOS # 0.1 10^3/uL (0.0-0.5); EOS % 2.3 % (0.0-3.0); HEMATOCRIT 41.1 % (36.0-47.0); HEMOGLOBIN 14.2 g/dl (12.0-15.5); LYMPH # 2.5 10^3/uL (1.5-5.0); MEAN CORPUSCULAR HGB CONC 34.5 g/dl (32.0-36.5); MEAN CORPUSCULAR VOLUME 95.6 fl (80.0-96.0); MONO # 0.6 10^3/uL (0.0-0.8); MONO % 9.6 % (2.0-8.0); NEUTROPHILS # 2.5 10^3/uL (1.5-8.5); NEUTROPHILS % 42.7 % (36.0-66.0); PLATELET COUNT, AUTOMATED 289 10^3/uL (150-450); WHITE BLOOD COUNT 5.7 10^3/uL (4.0-10.0)
[2024-07-11 14:08] LABS: ALBUMIN 3.8 G/DL (3.2-5.2); BILIRUBIN,TOTAL 0.8 MG/DL (0.3-1.2); CALCIUM LEVEL 9.7 MG/DL (8.3-10.6); CREATININE FOR GFR 0.88 MG/DL (0.55-1.30); GLOMERULAR FILTRATION RATE 73.3 (>45); POTASSIUM SERUM 3.7 MMOL/L (3.5-5.1); TOTAL PROTEIN 6.7 G/DL (5.7-8.2)
== END ==
LOC: M LABWUC 13:34
PROVIDERS: ATTEND Physician Assistant Medical
DX: R10.30 Lower abdominal pain, unspecified (principal)

== ENCOUNTER → 2024-08-11 | Outpatient (CLI) | payer OTHER ==
[~2024-08-11] MED LIST changes: +BUPR150T15 PO; -BUPR1TAB53 PO; +ISOVUE-370 76% 100ML VIAL As Ordered ONE; -SUCR1ORA2 PO; +SUCR1ORA20 PO
== END ==
LOC: M RAD 15:07
PROVIDERS: ATTEND Physician Assistant Medical
DX: R10.30 Lower abdominal pain, unspecified (principal); R63.4 Abnormal weight loss; R11.0 Nausea
CPT/HCPCS: 74177; Q9967

== ENCOUNTER → 2024-10-22 | Outpatient (REF) | payer OTHER ==
[~2024-10-22] MED LIST changes: -ISOVUE-370 76% 100ML VIAL As Ordered ONE
== END ==
LOC: M LAB REF 12:20
PROVIDERS: ATTEND Physician Assistant Medical
DX: R30.0 Dysuria (principal)

== ENCOUNTER → 2024-12-17 | Outpatient (REF) | payer OTHER | LOC: M LAB REF 17:01 | PROVIDERS: ATTEND Student in an Organized Health Care Education/Training Program | DX: R30.0 Dysuria (principal) ==